=== PATIENT | female | born 1960 | race Caucasian/White ===

== ENCOUNTER 2017-02-25 13:15 | Emergency (ER) | payer BC ==
[~2017-02-25] VITALS: Ht 175.3 cm; Wt 90.7 kg
[2017-02-25 13:15] VITALS: BP 140/99
== END 2017-02-25 13:54 | disposition home or self-care (01) ==
LOC: ER 13:18
DX: G89.18 Other acute postprocedural pain (principal); F17.210 Nicotine dependence, cigarettes, uncomplicated; I10 Essential (primary) hypertension; F41.9 Anxiety disorder, unspecified; Z85.3 Personal history of malignant neoplasm of breast; Z90.12 Acquired absence of left breast and nipple
CPT/HCPCS: A4606; A6402; Z7502; Z7610

== ENCOUNTER 2018-04-07 19:32 | Inpatient (IN) | payer BC, MEDICAID ==
[~2018-04-07] VITALS: Ht 177.8 cm; Wt 89.4 kg
--- NOTE | 2018-04-07 19:32 | NUR ---
PT BB SELF C/C SHORTNESS OF BREATH W/COUGH X 1 WEEK. SPO2 86% ON RA. PLACED ON 5L 02 VIA N/C WITH SATURATION OF 95%. PT IS TACHYCARDIC AND HYPERTENSIVE. PT IS A/OX4 ABLE TO MAKE NEEDS KNOWN. WILL CONTINUE TO MONITOR FOR ANY CHANGES DURING THE SHIFT.
--- NOTE | 2018-04-07 19:38 | NUR ---
ER MD VERDE AT BEDSIDE FOR EVAL
--- NOTE | 2018-04-07 20:00 | NUR ---
EKG AT BEDSIDE
[2018-04-07] MEDS ORDERED: CEFTRIAXONE 1GM BAG (ER ONLY) 1 GM/50 ML PIGGYBACK IV ONE (21:00)
[2018-04-07] MEDS ORDERED: IV NS 0.9% 1,000 ML BAG IV ONE (21:00)
[2018-04-07] MEDS ORDERED: AZITHROMYCIN 500 MG in IV D5W 250 ML IV SCH (21:00)
--- NOTE | 2018-04-07 21:00 | NUR ---
CHEST XRAY AT BEDSIDE
[2018-04-07] MEDS ORDERED: CEFTRIAXONE 1 G VIAL ONE (21:05)
[2018-04-07] MEDS ORDERED: AZITHROMYCIN 500 MG VIAL ONE (21:05)
[2018-04-07 21:06] LABS: BASOPHILS # (AUTO) 0.1 /CMM (0.0-0.2); BASOPHILS % (AUTO) 1.3 % (0.0-2.0); EOSINOPHILS % (AUTO) 0.5 % (0.0-6.0); HEMATOCRIT 39 % (33-45); HEMOGLOBIN 12.8 g/dL (11.5-14.8); LYMPHOCYTES # (AUTO) 1.4 /CMM (0.8-4.8); LYMPHOCYTES % (AUTO) 14.2 % (20.0-44.0); MEAN CORPUSCULAR HGB CONC 33 g/dl (31.0-36.0); MEAN CORPUSCULAR VOLUME 81 fL (82-100); MONOCYTES # (AUTO) 0.4 /CMM (0.1-1.30); MONOCYTES % (AUTO) 4.4 % (2.0-12.0); NEUTROPHILS # (AUTO) 8.1 /CMM (1.8-8.9); NEUTROPHILS % (AUTO) 79.6 % (43.0-81.0); PLATELET COUNT (AUTO) 283 /CMM (150-450); RED BLOOD CELL COUNT(AUTO) 4.79 MIL/uL (4.0-5.2); WHITE BLOOD COUNT (AUTO) 10.1 K/uL (4.3-11.0)
[2018-04-07 21:21] LABS: INR 1.01 (0.85-1.15)
[2018-04-07 21:24] LABS: ALANINE AMINOTRANSFERASE 12 U/L (12-78); ALBUMIN 3.1 g/dL (3.4-5.0); ALKALINE PHOSPHATASE 122 U/L (46-116); ASPARTATE AMINOTRANSFERASE 80 U/L (15-37); BILIRUBIN,DIRECT 0.1 mg/dL (0.0-0.2); BILIRUBIN,TOTAL 0.5 mg/dL (0.2-1.0); CALCIUM, SERUM 9.9 mg/dL (8.5-10.1); CARBON DIOXIDE 27 mmol/L (21-32); CHLORIDE 96 mmol/L (98-107); CREATININE 0.9 mg/dL (0.6-1.3); GLUCOSE 114 mg/dL (74-106); POTASSIUM 4.1 mmol/L (3.5-5.1); SODIUM SERUM 131 mmol/L (136-145); TOTAL PROTEIN, SERUM 7.6 g/dL (6.4-8.2); UREA NITROGEN, BLOOD 14 mg/dL (7-18)
[2018-04-07 21:26] LABS: TROPONIN I < 0.017 ng/mL (0.00-0.056)
[2018-04-07] MEDS ORDERED: IOHEXOL-350 100 ML VIAL IV ONE (21:29)
[2018-04-07] MEDS ORDERED: ONDANSETRON HCL/PF 4 MG/2 ML VIAL IV ONE (21:30)
[2018-04-07] MEDS ORDERED: ALBUTEROL FS 2.5 MG/3 ML VIAL.NEB NEB ONE (21:30)
[2018-04-07] MEDS ORDERED: MORPHINE SULFATE INJ 2 MG/ML DISP.SYRIN IV ONE (21:30)
[2018-04-07] MEDS ORDERED: ONDANSETRON HCL/PF 4 MG/2 ML VIAL ONE (21:34)
[2018-04-07] MEDS ORDERED: MORPHINE SULFATE INJ 2 MG/ML DISP.SYRIN ONE (21:35)
[2018-04-07] MEDS ORDERED: ALBUTEROL FS 2.5 MG/3 ML VIAL.NEB ONE (21:35)
--- NOTE | 2018-04-07 21:40 | NUR ---
PT OFF TO CTA
--- NOTE | 2018-04-07 21:49 | NUR ---
ON PHONE WITH IVONE PENA
--- NOTE | 2018-04-07 21:50 | NUR ---
CALLED NURSING LOCOMOTIVE PIPE FITTER AND REQUESTED A TELE BED FOR THIS PT.
--- NOTE | 2018-04-07 22:23 | NUR ---
PT 02 SATURATION 99% AFTER BREATHING TX BY RT. PT STILL ON N/C 5L OF 02
[2018-04-07 22:37] LABS: APPEARANCE,URINE CLEAR (CLEAR); BILIRUBIN,URINE NEGATIVE (NEGATIVE); BLOOD, URINE TRACE Ery/uL (NEGATIVE); COLOR,URINE YELLOW (YELLOW); KETONES,URINE TRACE (NEGATIVE); LEUKOCYTE ESTERASE ,URINE NEGATIVE (NEGATIVE); NITRITE, URINE NEGATIVE (NEGATIVE); PROTEIN,URINE NEGATIVE (NEGATIVE); UGLUCOSE NEGATIVE (NEGATIVE); UROBILINOGEN,URINE 0.2 EU/dL (0.2)
--- NOTE | 2018-04-07 22:46 | NUR ---
ASSIGNED TO [facility]#: [id number], PT IS DIAGNOSED WITH ACUTE RESPIRATORY FAILURE, AND IVONE PENA IS THE ACCEPTING MD.
[2018-04-07 22:47] LABS: BACTERIA,URINE None seen /HPF (None Seen); RBC,URINE 0-2 /HPF (0-2); SQUAMOUS EPITHELIAL CELL,UR Few /HPF (None Seen); WBC,URINE 0-2 /HPF (0-3)
--- NOTE | 2018-04-07 22:55 | NUR ---
REPORT TO KAYLYNN
[2018-04-07] MEDS ORDERED: LEVO75TA7 PO (23:03)
--- NOTE | 2018-04-07 23:10 | NUR ---
TELE/RN NOTES RECEIVED PT. FROM ER VIA HAMZAH. PT. IS AWAKE, ALERT AND ORIENTED X3. BREATHING UNEVEN AND SLIGHTLY LABORED ON 5LPM O2 VIA SIMPLE FACE MASK. ORIENTED PT. TO ROOM. PLACED EXTERNAL GENERAL ACCOUNTING CLERK ON PT. CURRENT RHYTHM = SINUS TACHYCARDIA HR 116. PT. IS ANXIOUS. EDUCATED PT. ON DEEP BREATHING. PT. VERBALIZED UNDERSTANDING. PT. WITH LEFT AC 18 GAUGE IV SALINE LOCK PRESENT, PATENT AND INTACT. PT. WITH RIGHT FOREARM 18 GAUGE IV SALINE LOCK PRESENT, PATENT AND INTACT. PT. REFUSING BODY CHECK AT THIS TIME. NO COMPLAINTS OF PAIN NOTED AT THIS TIME. AWAITING ADMITTING ORDERS. BED LOCKED AND IN LOWEST POSITION, SIDE RAILS UP X2, BED ALARM ON, CALL LIGHT WITHIN REACH, WILL CONTINUE TO MONITOR.
--- NOTE | 2018-04-07 23:20 | NUR ---
RN NOTES: PT SATURATION DROPPING TO LOW 80'S, PT ON SIMPLE MASK 8L, RT CURRENTLY IN THE UNIT RECOMMENDS TO SWITCH TO NON REBREATHER MASK 15L, NOW SPO2 94% PT REMAINS TO BE ANXIOUS. SHIRA BRUCE FBI INVESTIGATOR PAGED AWAITING FOR CALL BACK
[2018-04-07 23:40] VITALS: BP 147/85
--- NOTE | 2018-04-07 23:50 | NUR ---
RN NOTES: PAGED EPIC SHIPPING PACKER
[2018-04-07 23:55] VITALS: BP 147/85
--- NOTE | 2018-04-07 23:55 | NUR ---
TELE/RN NOTES AWAITING RETURN CALL FROM [facility] CARPET SEWING MACHINE OPERATOR DR. PENA. [facility] PAGED TO NOTIFY THAT PT. WAS SHORT OF BREATH ON SIMPLE FACE MASK 10LPM, O2 SAT 89-90, PT. WAS THEN PLACED ON NON-REBREATHER. PT. O2 SAT 99% ON NON-REBREATHER, HOWEVER PT. REMAINS SHORT OF BREATH AND ANXIOUS. WILL CONTINUE TO AWAIT CALL FROM DR. PENA.
[2018-04-08] VITALS (30 sets, daily range): BP systolic 95–147; BP diastolic 57–103
--- NOTE | 2018-04-08 00:45 | NUR ---
TELE/RN NOTES NO RETURN CALL RECEIVED FROM DR. PENA. CALLED [facility] DATA PROCESSING EQUIPMENT REPAIRER AGAIN TO NOTIFY [facility] DATA PROCESSING EQUIPMENT REPAIRER DR. PENA PT. REMAINS SHORT OF BREATH AND VERY ANXIOUS, ATTEMPTED TO TITRATE PT. OFF OF NON-REBREATHER PT. DIDN'T TOLERATE AND BEGAN DE-SATTING. PT. REMAINS ON NON-REBREATHER O2 SAT 99%. PT. IS SINUS TACH HR [facility] DATA PROCESSING EQUIPMENT REPAIRER SERVICE STATED THEY WOULD PAGE DR. PENA AGAIN. AWAITING CALL BACK.
[2018-04-08] MEDS: ALPRAZOLAM 0.25 MG TABLET PO PRN ×2 (00:54→11:51)
[2018-04-08] MEDS ORDERED: ONDANSETRON HCL/PF 4 MG/2 ML VIAL IVP PRN (01:00)
[2018-04-08] MEDS ORDERED: ENOXAPARIN SODIUM 40 MG/0.4 ML DISP.SYRIN SQ SCH ×2 (01:00→21:00)
[2018-04-08] MEDS ORDERED: QUETIAPINE FUMARATE 100 MG TABLET PO SCH (01:00)
[2018-04-08] MEDS ORDERED: MORPHINE SULFATE INJ 2 MG/ML DISP.SYRIN IV PRN (01:00)
[2018-04-08] MEDS ORDERED: VERAPAMIL SR 120 MG TABLET.SA PO SCH (01:00)
[2018-04-08] MEDS: predniSONE 20 MG TABLET PO SCH ×2 (01:00→08:18)
[2018-04-08] MEDS: IV NS 0.9% 1,000 ML IV PRN ×2 (01:04→15:47)
[2018-04-08] MEDS: IPRATROPIUM NEB FS 0.5 MG/2.5 ML AMPUL.NEB NEB SCH ×7 (01:22→23:03)
[2018-04-08] MEDS: ALBUTEROL FS 2.5 MG/0.5 ML VIAL.NEB NEB SCH ×7 (01:22→23:03)
--- NOTE | 2018-04-08 01:35 | NUR ---
TELE/RN NOTES PT. NOTED TO BE PALE, RESTLESS AND MORE SHORT OF BREATH WHILE RECEIVING BREATHING TREATMENT O2 SAT 92% ON 8LPM SIMPLE FACE MASK. NO CALL BACK RECEIVED FROM SHIRA CABLE SWAGER DR. SILVA PAGED AGAIN, NO RESPONSE. RT ON THE UNIT RECOMMENDED STAT ABG AFTER ASSESSING PT. STAT ABG RESULTED AT PH 7.167, CO2 66.9, O2 96.4, HCO3 23.7, O2 SAT 94% ON 8LPM SIMPLE FACE MASK.
--- NOTE | 2018-04-08 02:15 | NUR ---
TELE/RN NOTES PT. WAS TRANSFERRED TO ICU ROOM 257 FOLLOWING ACLS PROTOCOL PT. NEEDS BIPAP. MD TECHNOLOGY LEAD ARRIVED TO ICU. REPORT AND PT. GIVEN TO MAGNETIC TAPE COMPOSER OPERATOR FOR CONTINUITY OF CARE.
[2018-04-08] MEDS ORDERED: BUMETANIDE INJ 0.25 MG/ML VIAL IV ONE (02:30)
--- NOTE | 2018-04-08 02:30 | NUR ---
mepilex used on bipap mask. no skin tear noted Addendum: 04/08/18 at 0527 by CAROLINE SANTIAGO RT Amended: Links added.
--- NOTE | 2018-04-08 02:30 | NUR ---
PT SHOWED SIGNS OF SEVERE RESP DISTRESS BUT IS STILL ABLE TO FOLLOW AND RESPOND TO COMMANDS. PT TACHYPNEIC, TACHYCARDIC, AND RESTLESS. INITIAL ABG TAKEN AT 3WEST AND CRITICAL RESULTS WERE READ. ANTONIA CHAIDEZ AND BRAZER REPAIR AND SALVAGEANTONIA WARREN AWARE OF ABG RESULTS. PT TRANSFERRED TO ICU AND PLACED ON BIPAP PER IVONE PENA REQ. ABG TO BE TAKEN IN 20 MIN PRIOR TO ABG, TO SEE FOR IMPROVEMENT OF BIPAP PER IVONE PENA. BIPAP PLUGGED INTO RED OUTLET, ALARMS ARE SET AND AUDIBLE. WILL CONTINUE TO MONITOR Addendum: 04/08/18 at 0332 by CAROLINE SANTIAGO RT Amended: Links added.
[2018-04-08 02:33] LABS: ABG BASE EXCESS -5.9 mmol/L; ABG OXYGEN SATURATION 94.7 % (92.0-98.5); ABG PCO2 66.9 mmHg (35.0-45.0); ABG PH 7.167 (7.350-7.450); ABG PO2 96.4 mmHg (75.0-100.0); AaDO2 184.8 mmHg; COHb 1.5 % (0.5-1.5); MetHb 0.8 % (0.0-1.5); O2Hb 92.5 % (94.0-97.0); SITE, ABG Right Radial; VENT MODE, BG Simple Mask
[2018-04-08] MEDS ORDERED: BUMETANIDE INJ 0.25 MG/ML VIAL ONE (02:39)
--- NOTE | 2018-04-08 02:50 | NUR ---
ABG TAKEN PRIOR TO PT ON BIPAP FOR 20 MINUTES, RESULTS SHOWED IMPROVEMENT. PELT DROPPER ED AWARE OF ABG RESULTS. PT IS NOW COMFORTABLE AND NO RESP DISTRESS NOTED. Addendum: 04/08/18 at 0342 by CAROLINE SANTIAGO RT Amended: Links added.
--- NOTE | 2018-04-08 02:53 | NUR ---
TELE/RN NOTES 0128 PT. NOTED TO BE PALE, RESTLESS, PT. MORE SHORT OF BREATH WHILE RECEIVING BREATHING TREATMENT O2 SAT 92% ON 8LPM SIMPLE FACE MASK. EPIC PAGED AGAIN, NO RESPONSE. RT ON THE UNIT RECOMMENDED STAT ABG AFTER ASSESSING PT. ABG RESULTED AT PH 7.167, CO2 66.9, O2 96.4, HCO3 23.7, O2 SAT 94% ON 8LPM SIMPLE FACE MASK. 0150 CALLED FOR RAPID RESPONSE. PT. IS SHORT OF BREATH AND BECOMING LETHARGIC. 0200 MALT LIQUORS SALES REPRESENTATIVE ENDED. 0215 PT. WAS TRANSFERRED TO ICU ROOM 257 FOLLOWING ACLS PROTOCOL PT. NEEDS BIPAP. MD POT HOLDER BINDER ARRIVED TO ICU. REPORT AND PT. GIVEN TO VENEER SORTER FOR CONTINUITY OF CARE. PEOPLE PRESENT DURING RAPID RESPONSE: KAYLYNN LEWIS (RN) CAROLINE SANTIAGO (RT) GLENN KEARNEY(RN LINUX SYSTEM ENGINEER) NICOLE RUIZ (RT) SHIVANI JAIME (RN) KELVIN SANTIAGO (RESISTANCE WELDER) KAMLESH RAVI (RN) YASMINE BLUNT (RN) HANNAH BRITT (RN) ED BEBE (RN)
[2018-04-08 02:59] LABS: ABG BASE EXCESS -3.3 mmol/L; ABG OXYGEN SATURATION 94.6 % (92.0-98.5); ABG PH 7.264 (7.350-7.450); ABG PO2 84.6 mmHg (75.0-100.0); AaDO2 137.4 mmHg; COHb 1.3 % (0.5-1.5); MetHb 0.7 % (0.0-1.5); O2Hb 92.7 % (94.0-97.0); SITE, ABG Right Radial; VENT MODE, BG Bipap 18/5 40% BR 16
--- NOTE | 2018-04-08 05:04 | NUR ---
EVAPORATOR OPERATOR PT WAS TRANSFERRED FROM [facility] FLOOR AT 0225 A.M. WITH DIAGNOSIS RESPIRATORY DISTRESS. HISTORY-LEFT BREAST CANCER & LEFT MASTECTOMY IN 2017. STAT CHEST CTA - NO PE, MTS TO LUNGS, LARGE BILATERAL PLEURAL FLUID ACCUMULATION. CXR- PULMONARY EDEMA. ON ADMISSION PT WAS AWAKE, ALERT, ORIENTED, BUT VERY ANXIOUS, TACHYPNEIC. SHE WAS DNR/DNI CODE. PT WAS PLACED ON BIPAP AND ABG WAS REPEATED IN 30 MIN. AFTER. PT ALSO WAS GIVEN BUMEX 2 MG IV. ABG WAS IMPROVED /SEE RESULTS/. NO SOB, PAIN OR ANY OTHER DISCOMFORT.VSS, AFEBRILE, SCOPE-SR. URINE OUTPUT IS LARGE. PT IS AWAKE, ALERT, ORIENTED, MOVES ALL EXTREMITIES, FOLLOWS COMMANDS, SPEECH IS CLEAR. SHE CHANGED HER CODE STATUS FROM DNR/DNI TO FULL CODE. WILL CONTINUE CLOSE MONITORING.
[2018-04-08] MEDS ORDERED: PIPERACILLIN /TAZOBACTAM 3.375 G in IV D5W 50 ML IV SCH (06:00)
[2018-04-08] MEDS ORDERED: DICYCLOMINE HCL 10 MG CAPSULE PO SCH (06:00)
[2018-04-08 06:57] LABS: BASOPHILS % (AUTO) 0.3 % (0.0-2.0); EOSINOPHILS % (AUTO) 0.3 % (0.0-6.0); HEMATOCRIT 37 % (33-45); HEMOGLOBIN 12.1 g/dL (11.5-14.8); LYMPHOCYTES # (AUTO) 0.6 /CMM (0.8-4.8); LYMPHOCYTES % (AUTO) 7.2 % (20.0-44.0); MEAN CORPUSCULAR HGB CONC 33 g/dl (31.0-36.0); MEAN CORPUSCULAR VOLUME 84 fL (82-100); MONOCYTES # (AUTO) 0.2 /CMM (0.1-1.30); MONOCYTES % (AUTO) 2.7 % (2.0-12.0); NEUTROPHILS # (AUTO) 7.8 /CMM (1.8-8.9); NEUTROPHILS % (AUTO) 89.5 % (43.0-81.0); PLATELET COUNT (AUTO) 215 /CMM (150-450); RDW COEFFICIENT OF VARIATION 15.3 (11.5-15.0); RED BLOOD CELL COUNT(AUTO) 4.39 MIL/uL (4.0-5.2); WHITE BLOOD COUNT (AUTO) 8.8 K/uL (4.3-11.0)
[2018-04-08 07:10] LABS: TROPONIN I 0.021 ng/mL (0.00-0.056)
[2018-04-08 07:22] LABS: THYROID STIMULATING HORMONE 1.738 uIU/mL (0.358-3.74)
[2018-04-08 07:24] LABS: ALBUMIN 2.8 g/dL (3.4-5.0); BILIRUBIN,TOTAL 0.3 mg/dL (0.2-1.0); CALCIUM, SERUM 8.6 mg/dL (8.5-10.1); CREATININE 0.8 mg/dL (0.6-1.3); MAGNESIUM 1.4 mg/dL (1.8-2.4); PHOSPHORUS 3.8 mg/dL (2.5-4.9); POTASSIUM 3.6 mmol/L (3.5-5.1)
[2018-04-08 07:28] LABS: GAMMA GLUTAMYL TRANSFERASE 464 U/L (5-85)
--- NOTE | 2018-04-08 07:40 | NUR ---
ICU/RN PT IS ON BI-PAP.FIO2-40%.PT IS AWAKE,ALERT.V/S STABLE AFEBRILE,NO PAIN REPORTED AT THIS TIME.PERIFERAL IV INFUSING ORDERED.PT USE BEDPAN.URINATE WITH CLEAR YELLOW URINE.REPOSITION FOR COMFORT.LABS REVIEW . NOTIFIED.NEW ORDERS RECEIVED.CONTINUE MONITORING.
--- NOTE | 2018-04-08 07:53 | NUR ---
PATIENT WAS TAKEN OFF BIPAP AND PLACED ON 5L N/C. SHORTLY AFTER PATIENT BECAME ANXIOUS AND SOB NOTED. PATIENT PLACED BACK ON BIPAP. RN AT BEDSIDE.
--- NOTE | 2018-04-08 08:10 | NUR ---
ICU/RN PT IS OFF BI-PAP AND PLACED TO N/C 5L.UNABLE TO TOLERATE.HAS SOB ,SAT O2 DECREASED TO 85%,HR INCREASED TO 122 BPM.VERY ANXIOUS.PLACED BACK TO BIPAP. NOTIFIED.MG-1.4.WILL REPLACED. ORDERED.
[2018-04-08] MEDS: LEVOTHYROXINE SODIUM 75 MCG TABLET PO SCH (08:18)
[2018-04-08] MEDS ORDERED: PANTOPRAZOLE 40 MG VIAL IV SCH (09:00)
[2018-04-08] MEDS: ENOXAPARIN SODIUM 40 MG/0.4 ML DISP.SYRIN SQ SCH (09:18)
[2018-04-08] MEDS: Magnesium 1GM/D5W 100ML PREMIX 100 ML IV SCH ×3 (09:18→11:20)
[2018-04-08 10:58] LABS: ABG BASE EXCESS 0.3 mmol/L; ABG OXYGEN SATURATION 94.1 % (92.0-98.5); ABG PH 7.376 (7.350-7.450); ABG PO2 76.4 mmHg (75.0-100.0); AaDO2 157.1 mmHg; COHb 0.3 % (0.5-1.5); MetHb 0.6 % (0.0-1.5); O2Hb 93.3 % (94.0-97.0); SITE, ABG Right Radial; VENT MODE, BG BIPAP 15/5
--- NOTE | 2018-04-08 11:19 | NUR ---
ICU/RN ABG DONE . NOTIFIED. Addendum: 04/08/18 at 1120 by MACO BARFIELD RN FIO2 INCREASED TO 50%
--- NOTE | 2018-04-08 11:58 | NUR ---
ICU/RN PT WAS OFF BI-PAP FOR 5 MIN .UNABLE TO TOLERATE.AGITATED,SOB.XANAX 2 TAB PO GIVEN ORDERED.
[2018-04-08] MEDS: ZOSYN IVPB 3.375 G in IV D5W 50ml IV SCH ×2 (14:04→18:00)
--- NOTE | 2018-04-08 19:20 | NUR ---
PT RCVD ON BIPAP 18/, RATE 16, 50%. PT TOLERATING BIPAP SETTINGS. PT IS ALERT AND NO RESPIRATORY DISTRESS NOTED. BIPAP PLUGGED INTO RED OUTLET. ALARMS ARE SET AND AUDIBLE. AMBU BAG AT BEDSIDE. BREATHING TX GIVEN PER MD'S ORDERED. NO ADVERSE REACTION NOTED. WILL CONTINUE TO MONITOR .
--- NOTE | 2018-04-08 19:37 | NUR ---
INSULATION BOARD COATER OPERATOR. RECEIVED THE PT REST ON THE BED, AWAKE, ALERT, FOLLOW COMMANDS. BIPAP ON. WOOD CARVING MACHINE OPERATOR SHOWING NSR, BIPAP SETTINGS 18/5,RATE 16,FIO2 50%. SAT 98%. IV LT AC 18G. HOB ELEVATED, WILL CONTINUE TO MONITOR VITALS.
[2018-04-09] VITALS (31 sets, daily range): BP systolic 88–151; BP diastolic 59–103
[2018-04-09] MEDS: ZOSYN IVPB 3.375 G in IV D5W 50ml IV SCH ×4 (00:20→18:28)
[2018-04-09] MEDS: ALPRAZOLAM 0.25 MG TABLET PO PRN ×3 (00:54→17:13)
[2018-04-09] MEDS: IPRATROPIUM NEB FS 0.5 MG/2.5 ML AMPUL.NEB NEB SCH ×6 (02:59→23:20)
[2018-04-09] MEDS: ALBUTEROL FS 2.5 MG/0.5 ML VIAL.NEB NEB SCH ×6 (02:59→23:20)
[2018-04-09] MEDS: ACETAMINOPHEN 325 MG TABLET PO PRN ×2 (03:08→09:25)
--- NOTE | 2018-04-09 03:15 | NUR ---
FISH HATCHERY INSPECTOR. AM CARE, ORAL CARE, BED BATH GIVEN. LINEN CHANGED, REMAINING SAME BIPAP SETTING TOLERATED WELL. SAT 99%, NO ACUTE DISTRESS NOTED. RESEARCH WORKER ENCYCLOPEDIA SHOWING NSR. IV RT AC 20G, IVF NS 80ML/H. HOB ELEVATED, TURN AND REPOSITION Q2H, WILL CONTINUE TO MONITOR VITALS
[2018-04-09] MEDS ORDERED: MORPHINE SULFATE INJ 2 MG/ML DISP.SYRIN ONE (04:24)
[2018-04-09 04:44] LABS: BASOPHILS % (AUTO) 0.2 % (0.0-2.0); EOSINOPHILS % (AUTO) 0.1 % (0.0-6.0); HEMATOCRIT 35 % (33-45); HEMOGLOBIN 11.6 g/dL (11.5-14.8); LYMPHOCYTES # (AUTO) 1.2 /CMM (0.8-4.8); LYMPHOCYTES % (AUTO) 15.3 % (20.0-44.0); MEAN CORPUSCULAR HGB CONC 33 g/dl (31.0-36.0); MEAN CORPUSCULAR VOLUME 84 fL (82-100); MONOCYTES # (AUTO) 0.5 /CMM (0.1-1.30); MONOCYTES % (AUTO) 6.7 % (2.0-12.0); NEUTROPHILS # (AUTO) 6.2 /CMM (1.8-8.9); NEUTROPHILS % (AUTO) 77.7 % (43.0-81.0); PLATELET COUNT (AUTO) 219 /CMM (150-450); RDW COEFFICIENT OF VARIATION 15.2 (11.5-15.0); RED BLOOD CELL COUNT(AUTO) 4.16 MIL/uL (4.0-5.2)
[2018-04-09] MEDS: MORPHINE SULFATE INJ 4 MG/ML DISP.SYRIN IV PRN ×3 (04:45→19:05)
[2018-04-09] MEDS: IV NS 0.9% 1,000 ML IV PRN (04:52)
[2018-04-09 05:08] LABS: ALBUMIN 2.5 g/dL (3.4-5.0); BILIRUBIN,TOTAL 0.4 mg/dL (0.2-1.0); CALCIUM, SERUM 8.6 mg/dL (8.5-10.1); CREATININE 0.8 mg/dL (0.6-1.3); MAGNESIUM 2.1 mg/dL (1.8-2.4); PHOSPHORUS 3.5 mg/dL (2.5-4.9); POTASSIUM 3.8 mmol/L (3.5-5.1); TOTAL PROTEIN, SERUM 6.5 g/dL (6.4-8.2)
--- NOTE | 2018-04-09 07:30 | NUR ---
LAND DEVELOPER RECEIVED PATIENT AWAKE, VERY CALM AND FRIENDLY ON BIPAP AT 40% FI02 ALERT ORIENTED X 4 WITH DYSPNEIC EPISODE ABLE TO CONSUME HER SHARE OF MEAL WITH GOOD APPETITE COMPLAINTS OF SOB AT TIMES MONITORED CLOSELY
[2018-04-09] MEDS: LEVOTHYROXINE SODIUM 75 MCG TABLET PO SCH (07:52)
[2018-04-09] MEDS: predniSONE 20 MG TABLET PO SCH (08:52)
[2018-04-09] MEDS: ENOXAPARIN SODIUM 40 MG/0.4 ML DISP.SYRIN SQ SCH (08:53)
[2018-04-09 11:10] LABS: ABG BASE EXCESS 2.9 mmol/L; ABG PCO2 48.1 mmHg (35.0-45.0); ABG PH 7.393 (7.350-7.450); ABG PO2 75.1 mmHg (75.0-100.0); AaDO2 154.8 mmHg; SITE, ABG Right Radial; VENT MODE, BG BIPAP 18/5 40%
--- NOTE | 2018-04-09 20:05 | NUR ---
RECEIVED PT ON BIPAP 17/03, 16, 40%. PT IS AWAKE ALERT AND TOLERATING SETTINGS. NO RESP DISTRESS. MEPILEX IN PLACE. ALARMS SET AND AUDIBLE. WILL CONTINUE TO MONITOR. Addendum: 04/09/18 at 2007 by BHAVYA MAYNARD RT Amended: Links added.
[2018-04-09] MEDS: ZOLPIDEM TARTRATE 5 MG TABLET PO PRN (20:56)
--- NOTE | 2018-04-09 21:00 | NUR ---
LEAD MANUFACTURING ENGINEERING TECH - REC'D PT. W/BIPAP ON-SETTINGS AT I:E=18/5, RATE OF 16 & 40%. O2 SATS ARE >96%. LUNG CHRISTENSEN AUSC HAVE DIM/RHONCHI/CRACKLES AUSC. PT. IS VERY ANXIOUS & EMOTIONAL. PT.IS CRYING RE: HER SITUATION. PT.IS HAVING RT. EYE DISTORTION ISSUES. SHE STATED THAT "SOMETIMES SIGHT IS BLURRY & THEN WILL TURN BLACK & THEN BLURRY AGAIN". HEART MONITOR SHOWS SBP'S ARE LABILE & HR/SR/PVC'S. PT.IS ON A REG.DIET. PT.IS USING BEDPAN & BSC. ALL PULSES PALPABLE X 4 EXT. PT.IS AMBULATORY, BUT SHAKY WHEN TRYING TO STAND UP. AFEBRILE. PT. HAS NO LEFT BREAST (MASTECTOMY 02/14). SKIN INTACT. RUE MIDLINE HAS 0.9%NS INFUSING AT 80 CC/HR. PT. ASKED FOR AMBIEN AT PRESENT & STATED THAT SHE IS IN CONSTANT PAIN & THAT SHE HASN'T SLEPT FOR DAYS. PT. ALSO STATED THAT MSO4 AND XANAX DOESN'T WORK FOR HER. I OFFERED TO CALL & CHANGE MEDS, BUT PT. SAID "DON'T BOTHER". WILL F/U. CONT. POC.
[2018-04-09] MEDS ORDERED: OLANZAPINE 10 MG VIAL IM ONE ×2 (22:51→23:00)
[2018-04-10] VITALS (36 sets, daily range): BP systolic 100–178; BP diastolic 30–115
--- NOTE | 2018-04-10 | NUR ---
CASH APPLICATION CLERK- PT.HAD A COMP.BEDBATH AT 23:00 DUE TO URINE/FECAL INCONTINENCE. PT. IS ON THE BSC & JUST HAD A BM. ROSIE DID NOT WORK FOR PT. SHE IS STILL WIDE AWAKE. IVONE PENA DNP WAS PHONED AT 23:00 FOR ANOTHER MED TO HELP PT. SLEEP. ORDERS REC'D. PT. WAS ADM. ZYPREXA 5MG/IM TO LEFT HIP/BUTTOCKS. CONT. POC.
[2018-04-10] MEDS: GUAIFENESIN/D-METHORPHAN HB 5 ML UDC PO PRN (01:47)
[2018-04-10] MEDS: MORPHINE SULFATE INJ 4 MG/ML DISP.SYRIN IV PRN (01:48)
[2018-04-10] MEDS: ALPRAZOLAM 0.25 MG TABLET PO PRN ×2 (01:49→11:25)
[2018-04-10] MEDS: ZOSYN IVPB 3.375 G in IV D5W 50ml IV SCH ×4 (01:49→18:00)
[2018-04-10] MEDS: IV NS 0.9% 1,000 ML IV PRN ×2 (01:54→14:53)
--- NOTE | 2018-04-10 03:00 | NUR ---
PARTS CONTROL CLERK - PT. IS FINALLY RESTING W/EYES CLOSED. AT 01:45, PT. WAS ADM. MORPHINE SULF. 2MG/IVP & XANAX 0.5MG/PO. PT. WAS ALSO ADM. ROBITUSSIN COUGH SYRUP DUE TO COUGHING JAGS. A SMALLER BIPAP MASK WAS PLACED ON PT'S FACE BY HAYES. CONT.POC.
[2018-04-10] MEDS: IPRATROPIUM NEB FS 0.5 MG/2.5 ML AMPUL.NEB NEB SCH ×5 (03:23→20:18)
[2018-04-10] MEDS: ALBUTEROL FS 2.5 MG/0.5 ML VIAL.NEB NEB SCH ×5 (03:23→20:18)
[2018-04-10 04:24] LABS: BASOPHILS % (AUTO) 0.4 % (0.0-2.0); EOSINOPHILS % (AUTO) 0.3 % (0.0-6.0); HEMATOCRIT 36 % (33-45); HEMOGLOBIN 11.6 g/dL (11.5-14.8); LYMPHOCYTES # (AUTO) 1.6 /CMM (0.8-4.8); LYMPHOCYTES % (AUTO) 15.7 % (20.0-44.0); MEAN CORPUSCULAR HGB CONC 33 g/dl (31.0-36.0); MEAN CORPUSCULAR VOLUME 84 fL (82-100); MONOCYTES # (AUTO) 0.6 /CMM (0.1-1.30); MONOCYTES % (AUTO) 6.2 % (2.0-12.0); NEUTROPHILS # (AUTO) 7.8 /CMM (1.8-8.9); NEUTROPHILS % (AUTO) 77.4 % (43.0-81.0); PLATELET COUNT (AUTO) 233 /CMM (150-450); RDW COEFFICIENT OF VARIATION 15.1 (11.5-15.0); RED BLOOD CELL COUNT(AUTO) 4.21 MIL/uL (4.0-5.2)
[2018-04-10 04:36] LABS: CALCIUM, SERUM 8.6 mg/dL (8.5-10.1); CREATININE 0.7 mg/dL (0.6-1.3); POTASSIUM 3.5 mmol/L (3.5-5.1)
[2018-04-10] MEDS: MORPHINE SULFATE INJ 2 MG/ML DISP.SYRIN IV PRN ×4 (05:24→20:35)
--- NOTE | 2018-04-10 06:45 | NUR ---
ROPING MACHINE TENDER - IVONE PENA DNP WAS PHONED AGAIN RE: PT'S PAIN MANAGEMENT. ORDERS REC'D. MSO4-2MG WAS ADM. & IS NOW Q 2-NOT Q 4HR. GOOD UOP VIA BSC & BEDPAN. PT. HAD ONE EPISODE OF FECAL & ONE EPISODE OF URINE INCON - TINENCE. ATTEMPTS TO COMFORT & SUPPORT MEASURES WERE GIVEN. REPORT WILL BE ENDORSED TO KESHA RN.
--- NOTE | 2018-04-10 07:10 | NUR ---
RN INITIAL NOTES RECEIVED PT AWAKE, A/OX4. A LITTLE ANXIOUS/AGITATED. ON BIPAP. HOB ELEVATED. NO RESPIRATORY DISTRESS NOTED. NO SOB NOTED. DENIES ANY PAIN. MIDLINE IN PLACE. IVF INFUSING. SKIN INTACT. PT CONTINENT, USES BEDPAN OR BEDSIDE COMMODE. BLE ELEVATED. FOR POSSIBLE BILATERAL THORACENTESIS TODAY. WILL MONITOR.
[2018-04-10] MEDS: predniSONE 20 MG TABLET PO SCH (08:33)
[2018-04-10] MEDS: LEVOTHYROXINE SODIUM 75 MCG TABLET PO SCH (08:33)
[2018-04-10] MEDS: ENOXAPARIN SODIUM 40 MG/0.4 ML DISP.SYRIN SQ SCH (08:52)
--- NOTE | 2018-04-10 09:25 | NUR ---
RT PATIENT REMAINS ON BIPAP WITH SAME SETTINGS. PATIENT REMOVED FROM BIPAP FOR NASAL AND SKIN CARE. PATIENT UNABLE TO TOLERATE BEING OFF BIPAP VERY LONG AND BECAME ANXIOUS AND SOB. PLACED BACK ON BIPAP AT THIS TIME.
--- NOTE | 2018-04-10 09:52 | NUR ---
JALEN was informed by ICU CRGopal Townsend that pt. wants to apply for insurance since her insurance lapsed and she has no coverage. JALEN called Maria, insurance liaison x [phone] and informed her that pt. would like to apply for insurance. Maria informed SW she will go see the pt. today. JALEN contacted DIRECTOR BROADCAST Naomy and requested her to inform the pt. that Maria will be coming by to see her to assist with insurance.
--- NOTE | 2018-04-10 10:00 | NUR ---
RN NOTES SEEN AND EXAMINED BY DR. ENAMORADO. AWARE OF CURRENT LAB VALUES AND CXR RESULT. PT FOR BILATERAL THORACENTESIS TODAY. VS STABLE. PAIN WELL MANAGED. WILL CONTINUE TO MONITOR.
--- NOTE | 2018-04-10 13:21 | NUR ---
POST THORACENTESIS PATIENT REMOVED FROM BIPAP AND PLACED ON 5L N/C IONA WELL AT THIS TIME.
--- NOTE | 2018-04-10 13:30 | NUR ---
RN NOTES PT SP RIGHT THORACENTESIS. REMOVED 1600ML. TOLERATED PROCEDURE WELL. CXR DONE. NO PNEUMOTHORAX NOTED. WILL CONTINUE TO MONITOR.
--- NOTE | 2018-04-10 19:00 | NUR ---
RN INITIAL NOTES RECEIVED THE PATIENT AWAKE ON BED, A/O X4. ON BIPAP WITH SETTINGS 18/5, RATE 16, FIO2 40%, SATURATING WELL, NO S/S OF RESP DISTRESS. PT IS ST ON THE MONITOR, HR 100'S. PT IS CONTINENT, ABLE TO USE BEDPAN WITH ASSIST. RIGHT UPPER ARM MIDLINE WITH NS @ 80MLS/HR, FLUSHED AND PATENT, NO S/S OF INFILTRATION/INFECTION, DRESSING CDI. BED LOW AND LOCKED, SIDERAILS UP, CALL LIGHT WITHIN REACH. WILL MONITOR
[2018-04-10] MEDS: ZOLPIDEM TARTRATE 5 MG TABLET PO PRN (22:27)
[2018-04-11] VITALS (32 sets, daily range): BP systolic 107–167; BP diastolic 64–104
[2018-04-11] MEDS: ALBUTEROL FS 2.5 MG/0.5 ML VIAL.NEB NEB SCH ×7 (00:23→23:18)
[2018-04-11] MEDS: IPRATROPIUM NEB FS 0.5 MG/2.5 ML AMPUL.NEB NEB SCH ×7 (00:23→23:18)
[2018-04-11] MEDS: IV NS 0.9% 1,000 ML IV PRN ×3 (00:24→21:35)
[2018-04-11] MEDS: ZOSYN IVPB 3.375 G in IV D5W 50ml IV SCH ×4 (00:24→18:32)
[2018-04-11] MEDS: ALPRAZOLAM 0.25 MG TABLET PO PRN ×3 (00:36→20:45)
[2018-04-11] MEDS: MORPHINE SULFATE INJ 2 MG/ML DISP.SYRIN IV PRN ×3 (02:21→21:35)
[2018-04-11] MEDS: GUAIFENESIN/D-METHORPHAN HB 5 ML UDC PO PRN ×2 (02:21→18:35)
[2018-04-11 04:17] LABS: BASOPHILS % (AUTO) 0.4 % (0.0-2.0); EOSINOPHILS % (AUTO) 0.4 % (0.0-6.0); HEMATOCRIT 34 % (33-45); HEMOGLOBIN 11.1 g/dL (11.5-14.8); LYMPHOCYTES # (AUTO) 1.3 /CMM (0.8-4.8); LYMPHOCYTES % (AUTO) 15.1 % (20.0-44.0); MEAN CORPUSCULAR HGB CONC 33 g/dl (31.0-36.0); MEAN CORPUSCULAR VOLUME 84 fL (82-100); MONOCYTES # (AUTO) 0.6 /CMM (0.1-1.30); NEUTROPHILS # (AUTO) 6.7 /CMM (1.8-8.9); NEUTROPHILS % (AUTO) 77.1 % (43.0-81.0); PLATELET COUNT (AUTO) 245 /CMM (150-450); RDW COEFFICIENT OF VARIATION 15.3 (11.5-15.0); RED BLOOD CELL COUNT(AUTO) 4.03 MIL/uL (4.0-5.2); WHITE BLOOD COUNT (AUTO) 8.6 K/uL (4.3-11.0)
[2018-04-11 04:26] LABS: CALCIUM, SERUM 8.7 mg/dL (8.5-10.1); CREATININE 0.6 mg/dL (0.6-1.3); POTASSIUM 3.5 mmol/L (3.5-5.1)
--- NOTE | 2018-04-11 06:00 | NUR ---
RN CLOSING NOTES PT REMAINS STABLE OF THE MOMENT. ALL DUE MEDS GIVEN, AM CARE PROVIDED. WILL ENDORSE RENU TO AM RN
--- NOTE | 2018-04-11 07:10 | NUR ---
RN INITIAL NOTES RECEIVED PT AWAKE, A/OX4. ON BIPAP. HOB ELEVATED. NO RESPIRATORY DISTRESS NOTED. NO SOB NOTED. DENIES ANY PAIN. MIDLINE IN PLACE. IVF INFUSING. SKIN INTACT. PT CONTINENT, USES BEDPAN OR BEDSIDE COMMODE. BLE ELEVATED. CALL LIGHT WITHIN REACH. WILL MONITOR.
--- NOTE | 2018-04-11 07:51 | NUR ---
RT PT FOUND ON UNDER NOSE CUSHION MASK, SOME REDNESS SEEN ON BRIDGE OF NOSE BUT NO APPARENT SKIN BREAKDOWN. PT IS AWAKE AND ALERT. BIPAP IS PLUGGED INTO RED OUTLET AND ALARMS SET/FUNCTIONAL. PT APPEARS TO BE COMFORTABLE ON BIPAP, WILL CONTINUE TO MONITOR. Addendum: 04/11/18 at 0755 by CM FLORES RT Amended: Links added.
[2018-04-11] MEDS: predniSONE 20 MG TABLET PO SCH (08:59)
[2018-04-11] MEDS: LEVOTHYROXINE SODIUM 75 MCG TABLET PO SCH (08:59)
[2018-04-11] MEDS: ENOXAPARIN SODIUM 40 MG/0.4 ML DISP.SYRIN SQ SCH (09:00)
--- NOTE | 2018-04-11 09:20 | NUR ---
RN NOTES SEEN AND EXAMINED BY DR. PARDO. PT ON BIPAP. PT AWAKE, A/OX4. AGITATED. MD AWARE OF CURRENT LAB VALUES. PT FOR POSSIBLE LEFT THORACENTESIS TODAY, WILL SEND SPECIMEN FOR CYTOLOGY. WILL PLACE PT ON 02 AT 6LPM VIA NC. WILL DO ABG POST 1HR. WILL CLOSELY MONITOR.
[2018-04-11 10:11] LABS: ABG BASE EXCESS 4.5 mmol/L; ABG OXYGEN SATURATION 91.9 % (92.0-98.5); ABG PCO2 45.6 mmHg (35.0-45.0); ABG PH 7.429 (7.350-7.450); ABG PO2 63.1 mmHg (75.0-100.0); AaDO2 205.9 mmHg; MetHb 0.6 % (0.0-1.5); O2Hb 91.3 % (94.0-97.0); SITE, ABG Right Radial
--- NOTE | 2018-04-11 10:20 | NUR ---
RN NOTES DR. PARDO IN THE UNIT. AWARE OF ABG RESULT. PT ON 02 AT 6LPM VIA NC. HOB ELEVATED. PT ANXIOUS, REASSURANCE DONE. WILL CONTINUE TO MONITOR.
--- NOTE | 2018-04-11 12:00 | NUR ---
RN NOTES SEEN AND EXAMINED BY FLETCHER CHAIDEZ. PT A/OX4. ON 02 AT 6LPM VIA NC. PT ANXIOUS. HOB ELEVATED. AWARE OF CURRENT LAB VALUES. PT FOR POSSIBLE LEFT THORACENTESIS TODAY. AWAITING FOR ULTRASOUND. GERIATRIC NURSE ASSISTANT ORDERED CT HEAD AND NECK WO CONTRAST. WILL MONITOR.
--- NOTE | 2018-04-11 14:00 | NUR ---
RN NOTES FF UP CALL DONE FOR US GUIDED THORACENTESIS. SPOKE WITH ANNMARIE. PER ANNMARIE, HE WILL FF UP WITH THE MD. PT AWARE
--- NOTE | 2018-04-11 14:55 | NUR ---
RN NOTES 1415 PT LEFT VIA BED FOR CT HEAD AND NECK WO CONTRAST. PT A/OX4. ON 02 VIA FACIAL MASK AT 8LPM. HOB ELEVATED. 1445 PT BACK FROM PROCEDURE. PLACED COMFORTABLE BACK TO BED. CALL LIGHT WITHIN REACH. NOTED SBP>106S, DBP>100. FLETCHER CHAIDEZ AWARE WITH ORDER NOTED AND CARRIED OUT. WILL MONITOR.
[2018-04-11] MEDS ORDERED: hydrALAZINE HCL IV 20 MG VIAL IV PRN (15:00)
--- NOTE | 2018-04-11 16:40 | NUR ---
RN NOTES US GUIDED THORACENTESIS (LEFT) DONE. REMOVED 1500ML. TOLERATED PROCEDURE WELL. VS STABLE. FOR CXR. WILL CONTINUE TO MONITOR.
--- NOTE | 2018-04-11 19:00 | NUR ---
RN CLOSING NOTES PT REMAINS STABLE. NO SIGNIFICANT CHANGE NOTED. ON 02 AT 6LPM VIA NC. KEPT HOB ELEVATED. KEPT COMFORTABLE. ALL NEEDS ANTICIPATED AND MET. CALL LIGHT WITHIN REACH
--- NOTE | 2018-04-11 19:30 | NUR ---
RN INITIAL NOTES RECEIVED PT AWAKE, SITTING ON BED, PT IS A/O X4, APPEARS SEVERELY ANXIOUS. PT IS ON 6L NASAL CANNULA, SATURATING WELL, BUT WITH SEVERE COUGH. PT IS COMPLAINING OF MUSCLE PAIN, SHE REFUSES PAIN MEDICATION OF NOW BUT REQUESTS FOR SOME MUSCLE RELAXANTS, WILL OBTAIN ORDERS FROM ON-CALL MD. SHE IS SINUS TACH ON THE MONITOR, HR 110'S. PT IS CONTINENT, ABLE TO USE THE BEDPAN AND COMMODE WITH SOME ASSISTANCE. RIGHT UPPER ARM MIDLINE WITH NS @ 80MLS/HR, FLUSHED AND PATENT, NO S/S OF INFILTRATION/INFECTION, DRESSING CDI. BED LOW AND LOCKED, SIDERAILS UP, CALL LIGHT WITHIN REACH. WILL MONITOR
[2018-04-11] MEDS: CYCLOBENZAPRINE 10 MG TABLET PO PRN (19:35)
--- NOTE | 2018-04-11 20:50 | NUR ---
RN NOTES NOTIFIED ON-CALL RAO MATHIS SPECIAL EDUCATION ASSISTANT OF THE PATIENT'S SEVERE COUGHS EVEN S/P ROBITUSSIN 2HRS AGO. ALSO NOTIFIED HIM THAT PATIENT IS SEVERELY ANXIOUS AND NEXT XANAX DOSE IS AVAILABLE 2 HRS FROM NOW. PER RAO BYNUM, GIVE PRN XANAX NOW.
--- NOTE | 2018-04-11 20:51 | NUR ---
RECEIVED PT ON 6L NC. PT IS AWAKE ALERT. BIPAP S/B. PT RECEIVING Q4 BREATHING TX. WILL CONTINUE TO MONITOR.
[2018-04-11] MEDS: ZOLPIDEM TARTRATE 5 MG TABLET PO PRN (21:35)
--- NOTE | 2018-04-11 22:25 | NUR ---
PT REQUESTED TO BE ON BIPAP SO SHE CAN SLEEP. RN NOTIFIED WILL CONTINUE TO MONITOR. Addendum: 04/11/18 at 2227 by BHAVYA MAYNARD RT Amended: Links added.
[2018-04-12] VITALS (27 sets, daily range): BP systolic 110–176; BP diastolic 55–101
[2018-04-12] MEDS: ZOSYN IVPB 3.375 G in IV D5W 50ml IV SCH ×4 (00:59→18:50)
[2018-04-12] MEDS: IPRATROPIUM NEB FS 0.5 MG/2.5 ML AMPUL.NEB NEB SCH ×6 (03:08→23:06)
[2018-04-12] MEDS: ALBUTEROL FS 2.5 MG/0.5 ML VIAL.NEB NEB SCH ×6 (03:08→23:06)
[2018-04-12 04:45] LABS: BASOPHILS % (AUTO) 0.2 % (0.0-2.0); EOSINOPHILS % (AUTO) 0.5 % (0.0-6.0); HEMATOCRIT 34 % (33-45); HEMOGLOBIN 11.1 g/dL (11.5-14.8); LYMPHOCYTES # (AUTO) 1.4 /CMM (0.8-4.8); LYMPHOCYTES % (AUTO) 16.2 % (20.0-44.0); MEAN CORPUSCULAR HGB CONC 33 g/dl (31.0-36.0); MEAN CORPUSCULAR VOLUME 84 fL (82-100); MONOCYTES # (AUTO) 0.6 /CMM (0.1-1.30); MONOCYTES % (AUTO) 7.1 % (2.0-12.0); NEUTROPHILS # (AUTO) 6.5 /CMM (1.8-8.9); PLATELET COUNT (AUTO) 222 /CMM (150-450); RDW COEFFICIENT OF VARIATION 15.6 (11.5-15.0); RED BLOOD CELL COUNT(AUTO) 4.06 MIL/uL (4.0-5.2); WHITE BLOOD COUNT (AUTO) 8.5 K/uL (4.3-11.0)
[2018-04-12 04:59] LABS: INR 1.01 (0.87-1.13)
[2018-04-12 05:04] LABS: CALCIUM, SERUM 8.8 mg/dL (8.5-10.1); CREATININE 0.7 mg/dL (0.6-1.3); MAGNESIUM 1.7 mg/dL (1.8-2.4); PHOSPHORUS 3.6 mg/dL (2.5-4.9); POTASSIUM 3.7 mmol/L (3.5-5.1)
[2018-04-12] MEDS: CYCLOBENZAPRINE 10 MG TABLET PO PRN (05:10)
[2018-04-12] MEDS: MORPHINE SULFATE INJ 2 MG/ML DISP.SYRIN IV PRN ×3 (05:10→21:48)
[2018-04-12] MEDS: GUAIFENESIN/D-METHORPHAN HB 5 ML UDC PO PRN ×2 (05:10→19:38)
--- NOTE | 2018-04-12 06:20 | NUR ---
RN CLOSING NOTES PT REMAINS STABLE OF THE MOMENT. ALL DUE MEDS GIVEN, AM CARE PROVIDED. WILL ENDORSE RENU TO AM RN
--- NOTE | 2018-04-12 08:04 | NUR ---
RT PATIENT REMOVED FROM BIPAP AND PLACED ON 5L N/C IONA WELL AT THIS TIME. WILL CONT TO MONITOR CLOSELY.
[2018-04-12] MEDS: LEVOTHYROXINE SODIUM 75 MCG TABLET PO SCH (08:11)
[2018-04-12] MEDS: ENOXAPARIN SODIUM 40 MG/0.4 ML DISP.SYRIN SQ SCH (08:11)
[2018-04-12] MEDS: predniSONE 20 MG TABLET PO SCH (08:11)
--- NOTE | 2018-04-12 09:12 | NUR ---
STOCKROOM SELECTOR NOTE 0720: Received patient awake, A/Ox4. On Bipap, no distress noted at this time. Placed by RT on 4LPM of O2 via N, sat >93%. SR 90-ST 100's on the monitor. CHRISTY midline intact, IVF infusing as ordered. Kept call light at reach. Noted with non productive cough. 0830: Diet tolerated well. Held Lovenox for plan for biopsy. 0900: S/E by Dr. Fleming, made MD aware still with c/o anxiety at times. Patient complained that she wants something else than Xanax, will review. 0910: No any significant changes noted at this time. Kept clean, warm and dry. Needs attended. Kept call light at reach.
[2018-04-12] MEDS: Magnesium 1GM/D5W 100ML PREMIX 100 ML IV SCH ×2 (10:34→11:36)
[2018-04-12] MEDS ORDERED: MAGNESIUM OXIDE 400 MG TABLET PO ONE (11:00)
[2018-04-12] MEDS: ALPRAZOLAM 0.25 MG TABLET PO PRN (11:36)
[2018-04-12] MEDS: IV NS 0.9% 1,000 ML IV PRN (14:30)
--- NOTE | 2018-04-12 14:36 | NUR ---
BULK FOLDER NOTE 1230: Accompanied patient to US guided biopsy. 1430: Done with USG biopsy. Patient tolerated procedure. No distress noted. no significant changes noted. Served lunch tray. VSS. Paced back to bed.
[2018-04-12] MEDS ORDERED: IOHEXOL-300 100 ML VIAL IV ONE (18:07)
--- NOTE | 2018-04-12 19:35 | NUR ---
ICU/GRADES 1 THRU 6 HOME TEACHER RADIOLOGIST CALLED WITH RESULTS OF THE MRI TO THE HEAD/AUDITORY CANAL DUE TO LOSS OF VISION TO THE RIGHT EYE. REPORT BACK WAS THAT THERE IS THICKING TO THE SCLERA ON BOTH EYES, HOWEVER MORE TO THE RIGHT EYE THAN THE LEFT. THE CORE EYE NEEDS TO BE LOOKED AT CLOSER. SHE THAN SUGGESTED THAT MRI TO THE ORBITS BE CONSIDERED BOTH WITH AND WITHOUT CONTRAST. AND NO MASS WAS SEEN.
--- NOTE | 2018-04-12 19:55 | NUR ---
ICU/DIRECTOR OF ENGINEERING ONCOLOGIST WAS CALLED ABOUT THE RESULTS THAT RADIOLOGIST CALLED WITH RESULTS OF THE MRI TO THE HEAD/AUDITORY CANAL DUE TO LOSS OF VISION TO THE RIGHT EYE. REPORT BACK WAS THAT THERE IS THICKING TO THE SCLERA ON BOTH EYES, HOWEVER MORE TO THE RIGHT EYE THAN THE LEFT. THE CORE EYE NEEDS TO BE LOOKED AT CLOSER. SHE THAN SUGGESTED THAT MRI TO THE ORBITS BE CONSIDERED BOTH WITH AND WITHOUT CONTRAST. AND NO MASS WAS SEEN. DR. DUTTON THAN GAVE THE ORDER TO HAVE MRI DONE TOMORROW BOTH WITH AND WITHOUT CONTRACT FOR FURTHER RESULTS TO SEE THAT CAUSE OF THE THICKING OF SCLERA OF THE EYES.
--- NOTE | 2018-04-12 20:12 | NUR ---
ICU/CHIEF CONTROLLER CENTER PT WAS COUGHING A LOT, GAVE PRN MEDICATION OF ROBITUSSIN DM 5ML FOR THIS. CALL LIGHT WITHIN REACH. NO SHORTNESS OF BREATH SEEN AT THIS TIME. CALL LIGHT WITHIN REACH.
--- NOTE | 2018-04-12 21:22 | NUR ---
PT IS AWAKE ON 6L NC TOLERATING IT WELL. O2 SAT 96%. WILL CONTINUE TO MONITOR. BIPAP S/B.
--- NOTE | 2018-04-12 21:58 | NUR ---
ICU/CREDIT CARD CONTROL CLERK PT COMPLAINED ABOUT PAIN TO THE CHEST AREA, PAIN IS RATED 10/10 TO THIS AREA. NOTIFIED CHARGE NURSE LANEY, MORPHINE 2MG IVP GIVEN FOR THIS. CALL LIGHT WITHIN REACH, NO SHORTNESS OF BREATH SEEN AT THIS TIME. WILL CONTINUE TO MONITOR THIS PT.
[2018-04-12] MEDS: ZOLPIDEM TARTRATE 5 MG TABLET PO PRN (22:52)
--- NOTE | 2018-04-12 22:53 | NUR ---
ICU/KEY ATTENDANT PT REQUESTED SOMETHING TO SLEEP, AMBIEN 5 MG GIVEN PO. PT IS NOT HAVING ANY ACUTE RESPIRATORY DISTRESS, CALL LIGHT WITHIN REACH. WILL CONTINUE TO MONITOR THIS PT.
[2018-04-13] VITALS (31 sets, daily range): BP systolic 99–188; BP diastolic 54–128
[2018-04-13] MEDS: ZOSYN IVPB 3.375 G in IV D5W 50ml IV SCH ×4 (00:17→18:04)
[2018-04-13] MEDS: CYCLOBENZAPRINE 10 MG TABLET PO PRN ×3 (00:18→21:14)
--- NOTE | 2018-04-13 00:47 | NUR ---
ICU/CERTIFIED MEDICAL TECHNICIAN PT COMPLAIN ABOUT PAIN/MUSCLE SPASM TO HER NECK AND SHOULDERS, PT WAS GIVEN FLEXERIL PO FOR THIS. NO ACUTE RESPIRATORY DISTRESS SEEN, AT THIS TIME. CALL LIGHT WITHIN REACH. WILL CONTINUE TO MONITOR THIS.
[2018-04-13] MEDS: MORPHINE SULFATE INJ 2 MG/ML DISP.SYRIN IV PRN ×4 (01:49→12:12)
--- NOTE | 2018-04-13 01:50 | NUR ---
ICU/CAT CRACKER OPERATOR PT COMPLAINED ABOUT PAIN TO LEFT AND RIGHT BREAST AREAS, PAIN IS RATED 8/10 TO THIS AREA. NOTIFIED CHARGE NURSE LANEY, MORPHINE 2MG IVP GIVEN FOR THIS. CALL LIGHT WITHIN REACH, NO SHORTNESS OF BREATH SEEN AT THIS TIME. WILL CONTINUE TO MONITOR PT'S PAIN LEVEL.
--- NOTE | 2018-04-13 03:10 | NUR ---
ICU/ELECTRIC MOTOR WINDERS ASSEMBLER PT COMPLAINED ABOUT HAVING AN PANIC ATTACK, PT WAS GIVEN PO XANAX 0.5MG PO FOR THIS. CALL LIGHT IS WITHIN REACH, NO ACUTE RESPIRATORY DISTRESS SEEN. WILL CONTINUE TO MONITOR THIS PT'S ANXIETY AND ANY FUTURE PANIC ATTACK.
[2018-04-13] MEDS: ALPRAZOLAM 0.25 MG TABLET PO PRN ×2 (03:11→08:52)
[2018-04-13] MEDS: IPRATROPIUM NEB FS 0.5 MG/2.5 ML AMPUL.NEB NEB SCH ×6 (03:23→23:38)
[2018-04-13] MEDS: ALBUTEROL FS 2.5 MG/0.5 ML VIAL.NEB NEB SCH ×6 (03:23→23:38)
[2018-04-13 04:37] LABS: BASOPHILS % (AUTO) 0.2 % (0.0-2.0); EOSINOPHILS % (AUTO) 0.4 % (0.0-6.0); HEMATOCRIT 34 % (33-45); HEMOGLOBIN 11.1 g/dL (11.5-14.8); LYMPHOCYTES # (AUTO) 1.5 /CMM (0.8-4.8); LYMPHOCYTES % (AUTO) 15.3 % (20.0-44.0); MEAN CORPUSCULAR HGB CONC 32 g/dl (31.0-36.0); MEAN CORPUSCULAR VOLUME 84 fL (82-100); MONOCYTES # (AUTO) 0.7 /CMM (0.1-1.30); MONOCYTES % (AUTO) 7.2 % (2.0-12.0); NEUTROPHILS # (AUTO) 7.3 /CMM (1.8-8.9); NEUTROPHILS % (AUTO) 76.9 % (43.0-81.0); PLATELET COUNT (AUTO) 252 /CMM (150-450); RDW COEFFICIENT OF VARIATION 15.3 (11.5-15.0); RED BLOOD CELL COUNT(AUTO) 4.05 MIL/uL (4.0-5.2); WHITE BLOOD COUNT (AUTO) 9.5 K/uL (4.3-11.0)
[2018-04-13] MEDS: GUAIFENESIN/D-METHORPHAN HB 5 ML UDC PO PRN (04:37)
--- NOTE | 2018-04-13 04:38 | NUR ---
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 CALL LIGHT WITHIN REACH. NO SHORTNESS OF BREATH SEEN AT THIS TIME. CALL LIGHT WITHIN REACH.
--- NOTE | 2018-04-13 04:50 | NUR ---
ICU/MASTER HEARTH TECHNICIAN PT COMPLAINED ABOUT PAIN TO LEFT AND RIGHT BREAST AREAS, PAIN IS RATED 10/10 TO THIS AREA. NOTIFIED CHARGE NURSE LANEY, MORPHINE 2MG IVP GIVEN FOR THIS. CALL LIGHT WITHIN REACH. PT IS HAVING SOME SHORTNESS OF BREATH, HOWEVER MOSTLY ASSOCIATED WITH A PANIC ATTACK AT THIS TIME. RT CALLED TO PLACE PT ON BIPAP, DUE TO THE SOB. WHILE WAITING FOR RT, ASKED ABOUT ANY FAMILY MEMBERS THAT COULD BE CALLED TO HELP CALM THE PT AT THIS TIME, HOWEVER PT SAID NO. ALSO ASKED ABOUT CODE STATUS SINCE PT APPEARS TO BE GETTING WORSE, SAID SHE'LL WAIT TILL SHE HAS ALL THE RESULTS OF THE TEST TO MAKE THAT DECISION. THEN EXPLAINED TO PT ABOUT HOSPICE CARE, AND THE OUTCOME OF THIS A POSSIBLE OPTION WHEN SHE GOES HOME AFTER SHE HAS ALL THE TEST RESULTS. RT NOW PLACING PT ON BIPAP.
--- NOTE | 2018-04-13 05:00 | NUR ---
PT PLACED ON BIPAP DO TO INCREASED WOB. RN AWARE. Addendum: 04/13/18 at 0501 by BHAVYA MAYNARD RT Amended: Links added.
[2018-04-13 05:13] LABS: CALCIUM, SERUM 8.9 mg/dL (8.5-10.1); CREATININE 0.7 mg/dL (0.6-1.3); POTASSIUM 3.7 mmol/L (3.5-5.1)
[2018-04-13] MEDS: IV NS 0.9% 1,000 ML IV PRN ×2 (05:36→18:04)
[2018-04-13] MEDS: LEVOTHYROXINE SODIUM 75 MCG TABLET PO SCH (05:51)
--- NOTE | 2018-04-13 06:10 | NUR ---
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 CALL LIGHT WITHIN REACH. WILL CONTINUE TO MONITOR THIS PT.
--- NOTE | 2018-04-13 08:47 | NUR ---
INDUSTRIAL RETROFIT DESIGNER NOTES PATIENT CURRENTLY OF BIPAP , PLACED ON 6LPM NC SPO2 OF 87-90% , NOTED TO BE ANXIOUS , INSTRUCTED TO BE CALM TAKE DEEP BREATHS , WILL CONTINUE TO MONITOR
[2018-04-13] MEDS: predniSONE 20 MG TABLET PO SCH (08:52)
[2018-04-13] MEDS: HYDROCODONE BIT/HOMATROPINE 5 ML UDC PO PRN ×3 (09:04→21:14)
--- NOTE | 2018-04-13 09:15 | NUR ---
DIRECTOR OF FINANCIAL AID NOTES SEEN AND EVALUATED BY DR PARDO , DISCUSSED CURRENT V/S , OFF BIPAP , CURRENTLY ON 6LPM NC SPO2 OF 88-92% NOTED WITH ANXIETY , PER MD CHANGE COUGH SYRUP TO HYDROCAN 5ML Q4PRN FOR COUGH AND DC ROBITUSSIN .
[2018-04-13] MEDS: ENOXAPARIN SODIUM 40 MG/0.4 ML DISP.SYRIN SQ SCH (10:12)
--- NOTE | 2018-04-13 11:07 | NUR ---
BREWERY REPRESENTATIVE NOTES CALLED DR CLAYTON OFFICE AT [facility] WITH [facility] , NOTIFIED THAT OUR MEDICAL DOCTOR IS REQUESTING FOR MEDICAL RECORDS OF THE PATIENT , PER [facility]E MEDICAL RECORDS WILL BE AVAILABLE TOMORROW , WILL FAXED REQUEST @ [phone]
--- NOTE | 2018-04-13 12:30 | NUR ---
HIGH WORKER NOTES KAYLYNN AT [facility]EDSIDE , DISCUSSED LABS , ON 6LPM NC DISCUSSED LATEST V/S , MRI ORDER CANCELLED ADULT PAROLE OFFICER AWARE .
--- NOTE | 2018-04-13 12:37 | NUR ---
HEEL REDUCER NOTES CALLED [facility] , F/U PSYCH CONSULT , PER TECH DR DELACRUZ WILL DO ROUNDS LATER ,
--- NOTE | 2018-04-13 15:00 | NUR ---
CRYOGENIC TRANSPORT DRIVER NOTES PLACED PATIENT ON BIPAP SETTINGS ORDERED , NOTED TO BE ANXIOUS , HR OF 115-120 , RR OF 30-35 , WILL CONTINUE TO MONITOR
[2018-04-13] MEDS: MORPHINE SULFATE INJ 4 MG/ML DISP.SYRIN IV PRN ×2 (15:25→19:03)
[2018-04-13] MEDS ORDERED: MORPHINE SULFATE INJ 2 MG/ML DISP.SYRIN IV PRN (15:30)
--- NOTE | 2018-04-13 16:02 | NUR ---
RODENT EXTERMINATOR NOTES DR DELACRUZ AT BEDSIDE , DISCUSSED PATIENT HAD EPISODES OF ANXIETY ATTACK WHILE OFF BIPAP , NOTED WITH EPISODES OF SCREAMING AND CRYING , DISCUSSED PATIENT DIAGNOSIS AND REQUEST IF XANAX CAN BE CHANGE WITH VALIUM MD AWARE .
--- NOTE | 2018-04-13 16:30 | NUR ---
PRIMER BOXER NOTES PATIENT REQUESTED TO REMOVED BIPAP , AND CHANGE TO NASAL CANNULA @ 6LPM SHE VERBALIZED THAT SHE IS DOING BETTER WITH LESS ANXIETY AT THIS TIME , WILL CONTINUE TO MONITOR
[2018-04-13] MEDS: DIAZEPAM 2 MG TABLET PO PRN (18:20)
--- NOTE | 2018-04-13 19:00 | NUR ---
ADJUNCT WRITING INSTRUCTOR NOTES PATIENT NOTED TO BE ANXIOUS , ON 8LPM SIMPLE MASK , REQUESTING BIPAP , HR OF 120'S , RR OF 30'S SBP OF 150'S , PLACED PT ON BIPAP WITH SETTINGS ORDERED , SPO2 OF 92-97% , MORPHINE 2MG PT COMPLAINING OF HAD AND BACK PAIN 06/09 . REPORT GIVEN TO SEAN FOR CONTINUITY OF CARE
--- NOTE | 2018-04-13 19:10 | NUR ---
RN INITIAL NOTES RECEIVED PATIENT AWAKE ON BED, A/O X4, VERY ANXIOUS. ON BIPAP WITH SETTINGS 18/5, RATE 16, FIO2 40%, SATURATING WELL, NO S/S OF RESP DISTRESS. CURRENTLY ST ON THE MONITOR, HR 100'S. CONTINENT, ABLE TO USE THE BEDPAN AND BEDSIDE COMMODE. RIGHT UPPER ARM MIDLINE WITH NS @ 80MLS/HR, NO BLOOD RETURN BUT EASILY FLUSHED, NO S/S INFILTRATION/INFECTION, DRESSING CDI. BED LOW AND LOCKED, SIDERAILS UP, CALL LIGHT WITHIN REACH. WILL MONITOR
[2018-04-13] MEDS: ZOLPIDEM TARTRATE 5 MG TABLET PO PRN (21:14)
[2018-04-13] MEDS: MIRTAZAPINE 15 MG TABLET PO SCH (21:14)
--- NOTE | 2018-04-13 21:41 | NUR ---
RN NOTES PATIENT REQUESTS TO BE ON NASAL CANNULA. PUT PATIENT ON 5L NASAL CANNULA. WILL MONITOR
--- NOTE | 2018-04-13 22:30 | NUR ---
RN NOTES PATIENT UNABLE TO TOLERATE OFF BIPAP. PATIENT PUT BACK ON BIPAP WITH PREVIOUS SETTINGS
[2018-04-14] VITALS (33 sets, daily range): BP systolic 108–152; BP diastolic 71–107
[2018-04-14] MEDS: ZOSYN IVPB 3.375 G in IV D5W 50ml IV SCH ×4 (00:15→18:12)
[2018-04-14] MEDS: MORPHINE SULFATE INJ 4 MG/ML DISP.SYRIN IV PRN ×5 (02:00→17:23)
[2018-04-14] MEDS: ALBUTEROL FS 2.5 MG/0.5 ML VIAL.NEB NEB SCH ×6 (04:01→23:55)
[2018-04-14] MEDS: IPRATROPIUM NEB FS 0.5 MG/2.5 ML AMPUL.NEB NEB SCH ×6 (04:01→23:55)
[2018-04-14] MEDS: CYCLOBENZAPRINE 10 MG TABLET PO PRN ×3 (04:03→21:02)
[2018-04-14] MEDS: IV NS 0.9% 1,000 ML IV PRN (04:03)
[2018-04-14] MEDS: HYDROCODONE BIT/HOMATROPINE 5 ML UDC PO PRN (04:03)
[2018-04-14 04:30] LABS: BASOPHILS % (AUTO) 0.2 % (0.0-2.0); EOSINOPHILS % (AUTO) 0.9 % (0.0-6.0); HEMATOCRIT 35 % (33-45); HEMOGLOBIN 11.3 g/dL (11.5-14.8); LYMPHOCYTES # (AUTO) 1.9 /CMM (0.8-4.8); LYMPHOCYTES % (AUTO) 19.2 % (20.0-44.0); MEAN CORPUSCULAR HGB CONC 33 g/dl (31.0-36.0); MEAN CORPUSCULAR VOLUME 85 fL (82-100); MONOCYTES # (AUTO) 0.6 /CMM (0.1-1.30); MONOCYTES % (AUTO) 6.2 % (2.0-12.0); NEUTROPHILS # (AUTO) 7.2 /CMM (1.8-8.9); NEUTROPHILS % (AUTO) 73.5 % (43.0-81.0); PLATELET COUNT (AUTO) 277 /CMM (150-450); RDW COEFFICIENT OF VARIATION 15.7 (11.5-15.0); RED BLOOD CELL COUNT(AUTO) 4.11 MIL/uL (4.0-5.2); WHITE BLOOD COUNT (AUTO) 9.8 K/uL (4.3-11.0)
[2018-04-14 04:47] LABS: CALCIUM, SERUM 9.1 mg/dL (8.5-10.1); CREATININE 0.7 mg/dL (0.6-1.3); MAGNESIUM 1.9 mg/dL (1.8-2.4); POTASSIUM 4.7 mmol/L (3.5-5.1)
[2018-04-14] MEDS: DIAZEPAM 2 MG TABLET PO PRN ×2 (05:25→17:24)
--- NOTE | 2018-04-14 06:10 | NUR ---
RN CLOSING NOTES PT REMAINS STABLE OF THE MOMENT. ALL DUE MEDS GIVEN. WILL ENDORSE RENU TO AM RN
[2018-04-14] MEDS: LEVOTHYROXINE SODIUM 75 MCG TABLET PO SCH (06:31)
[2018-04-14] MEDS: predniSONE 20 MG TABLET PO SCH (09:29)
[2018-04-14] MEDS: ENOXAPARIN SODIUM 40 MG/0.4 ML DISP.SYRIN SQ SCH (09:29)
[2018-04-14] MEDS ORDERED: FUROSEMIDE 20 MG/2 ML VIAL IV ONE (12:00)
[2018-04-14] MEDS: ACETAMINOPHEN 325 MG TABLET PO PRN (14:05)
[2018-04-14] MEDS: ANASTROZOLE 1 MG TABLET PO SCH (15:59)
--- NOTE | 2018-04-14 16:35 | NUR ---
Pt called this nurse into room to show a bloody clot that she coughed up. Paged Dr Larsen, the pts oncologist, to report clot to her and she ordered to hold Lovenox until tomorrow when she will evaluate pt.
[2018-04-14] MEDS: NICOTINE PATCH (21MG) 21 MG PATCH.TD24 TD SCH (18:13)
--- NOTE | 2018-04-14 19:15 | NUR ---
DIRECTOR OF PRODUCT DESIGN: RECEIVED PT A/O X 3 WT RESTLESSNESS. PLACED BACK ON BIPAP FROM 5L 02 VIA NC AND TOLERATING SETTINGS ORDERED. NO ACUTE DISTRESS, NO C/O PAIN AT THIS TIME. SR ON FASHION PATTERNMAKER. AFEBRILE. ABLE TO USE BED SIDE COMMODE. CHRISTY MIDLINE INTACT TKO. NO S/S OF INFILTRATION. NO COUGHING OUT OF BLOOD OF THIS TIME. SAFETY PRECAUTION NOTED. WILL CONTINUE TO MONITOR.
[2018-04-14] MEDS: MIRTAZAPINE 15 MG TABLET PO SCH (21:02)
--- NOTE | 2018-04-14 22:10 | NUR ---
SPECTROSCOPIST: REASSESSED AFTER GIVEN FLEXERIL WT GOOD EFFECT. PT VERBALIZED RELIEF FROM MUSCLE SPASM. VOIDED AND HAD BOWEL MOVEMENT ON BED SIDE COMMODE. GOOD [facility]RISTIANA [facility]ARE RENDERED WT ASSISTANCE. SAFETY PRECAUTION NOTED AT ALL TIMES.
[2018-04-15] VITALS (30 sets, daily range): BP systolic 112–168; BP diastolic 61–151
[2018-04-15] MEDS: ZOLPIDEM TARTRATE 5 MG TABLET PO PRN (00:03)
[2018-04-15] MEDS: ZOSYN IVPB 3.375 G in IV D5W 50ml IV SCH ×4 (00:09→18:07)
[2018-04-15] MEDS: IV NS 0.9% 250 ML IV PRN (02:52)
[2018-04-15] MEDS: MORPHINE SULFATE INJ 4 MG/ML DISP.SYRIN IV PRN ×6 (03:30→23:45)
[2018-04-15] MEDS: ALBUTEROL FS 2.5 MG/0.5 ML VIAL.NEB NEB SCH ×6 (03:57→23:28)
[2018-04-15] MEDS: IPRATROPIUM NEB FS 0.5 MG/2.5 ML AMPUL.NEB NEB SCH ×6 (03:57→23:28)
[2018-04-15 04:54] LABS: BASOPHILS % (AUTO) 0.3 % (0.0-2.0); EOSINOPHILS % (AUTO) 1.2 % (0.0-6.0); HEMATOCRIT 36 % (33-45); HEMOGLOBIN 11.7 g/dL (11.5-14.8); LYMPHOCYTES # (AUTO) 2.3 /CMM (0.8-4.8); LYMPHOCYTES % (AUTO) 23.7 % (20.0-44.0); MEAN CORPUSCULAR HGB CONC 32 g/dl (31.0-36.0); MEAN CORPUSCULAR VOLUME 84 fL (82-100); MONOCYTES # (AUTO) 0.7 /CMM (0.1-1.30); MONOCYTES % (AUTO) 6.9 % (2.0-12.0); NEUTROPHILS # (AUTO) 6.5 /CMM (1.8-8.9); NEUTROPHILS % (AUTO) 67.9 % (43.0-81.0); PLATELET COUNT (AUTO) 261 /CMM (150-450); RDW COEFFICIENT OF VARIATION 15.7 (11.5-15.0); WHITE BLOOD COUNT (AUTO) 9.6 K/uL (4.3-11.0)
[2018-04-15 05:00] LABS: CALCIUM, SERUM 9.5 mg/dL (8.5-10.1); CREATININE 0.7 mg/dL (0.6-1.3); POTASSIUM 3.8 mmol/L (3.5-5.1)
[2018-04-15] MEDS: DIAZEPAM 2 MG TABLET PO PRN ×3 (05:43→17:46)
[2018-04-15] MEDS: LEVOTHYROXINE SODIUM 75 MCG TABLET PO SCH (06:36)
--- NOTE | 2018-04-15 06:50 | NUR ---
SEAMLESS TUBE DRAWER: BIPAP SETTINGS ORDERED AND TOLERATED WELL. VALIUM FOR ANXIETY GIVEN WT GOOD EFFECT. MORPHINE GIVEN FOR GEN. BODY PAIN (06/09) AND WILL MONITOR EFFECTIVITY. SAFETY PRECAUTION NOTED AT ALL TIMES.
[2018-04-15] MEDS: predniSONE 20 MG TABLET PO SCH (09:29)
[2018-04-15] MEDS: NICOTINE PATCH (21MG) 21 MG PATCH.TD24 TD SCH (09:29)
[2018-04-15] MEDS: ANASTROZOLE 1 MG TABLET PO SCH (09:30)
[2018-04-15] MEDS: FUROSEMIDE 40 MG/4 ML VIAL IV SCH ×2 (10:13→17:46)
[2018-04-15] MEDS: CYCLOBENZAPRINE 10 MG TABLET PO PRN ×2 (10:15→22:37)
--- NOTE | 2018-04-15 19:30 | NUR ---
BURNER TECHNICIAN: RECEIVED PT ON 6L VIA NC WT BUBBLE HUMIDIFIER, REMAINED A/O X 3. NO ACUTE DISTRESS, NO C/O PAIN. SR-ST ON ELECTRONICS MANUFACTURER. AFEBRILE. INDEPENDENT TO BED MOBILITY AND ABLE TO USE BEDSIDE COMMODE. CHRISTY MIDLINE TKO WT NO S/S OF COMPLICATIONS. HOB AT 45 DEGREES. SAFETY PRECAUTION NOTED. CALL LIGHT WITHIN EASY REACH.
--- NOTE | 2018-04-15 22:00 | NUR ---
SUPERVISOR SPINNING: PLACED ON BIPAP WT SETTINGS ORDERED. TOLERATING WELL WT 02 SAT 96% AND ABOVE. WILL CONTINUE TO MONITOR.
[2018-04-15] MEDS: MIRTAZAPINE 15 MG TABLET PO SCH (22:22)
--- NOTE | 2018-04-15 23:15 | NUR ---
DIGITAL LEARNING PLATFORMS MANAGER: PT. REQUESTED TO BE OFF BIPAP AND SAID SHE'LL TRY TO SLEEP WT NC ON. PLACED BACK ON 6L VIA NC. WILL CONTINUE TO MONITOR.
[2018-04-16] VITALS (27 sets, daily range): BP systolic 100–136; BP diastolic 66–95
--- NOTE | 2018-04-16 00:15 | NUR ---
PROFESSOR OF GENETICS: PLACED BACK ON BIPAP FOR DESATURATION. WILL CONTINUE TO MONITOR.
[2018-04-16] MEDS: ZOSYN IVPB 3.375 G in IV D5W 50ml IV SCH ×4 (00:22→18:01)
[2018-04-16] MEDS: DIAZEPAM 2 MG TABLET PO PRN ×2 (02:56→10:23)
[2018-04-16] MEDS: HYDROCODONE/APAP 5/325MG 1 EACH TABLET PO PRN (02:56)
[2018-04-16] MEDS: IV NS 0.9% 250 ML IV PRN (02:56)
[2018-04-16] MEDS: IPRATROPIUM NEB FS 0.5 MG/2.5 ML AMPUL.NEB NEB SCH ×6 (03:38→23:32)
[2018-04-16] MEDS: ALBUTEROL FS 2.5 MG/0.5 ML VIAL.NEB NEB SCH ×6 (03:38→23:32)
[2018-04-16 04:35] LABS: BASOPHILS % (AUTO) 0.3 % (0.0-2.0); EOSINOPHILS % (AUTO) 0.7 % (0.0-6.0); HEMATOCRIT 37 % (33-45); HEMOGLOBIN 12.1 g/dL (11.5-14.8); LYMPHOCYTES # (AUTO) 2.1 /CMM (0.8-4.8); LYMPHOCYTES % (AUTO) 21.5 % (20.0-44.0); MEAN CORPUSCULAR HGB CONC 32 g/dl (31.0-36.0); MEAN CORPUSCULAR VOLUME 83 fL (82-100); MONOCYTES # (AUTO) 0.6 /CMM (0.1-1.30); NEUTROPHILS # (AUTO) 7.1 /CMM (1.8-8.9); NEUTROPHILS % (AUTO) 71.5 % (43.0-81.0); PLATELET COUNT (AUTO) 253 /CMM (150-450)
[2018-04-16 04:43] LABS: CALCIUM, SERUM 9.6 mg/dL (8.5-10.1); CREATININE 0.8 mg/dL (0.6-1.3); POTASSIUM 3.7 mmol/L (3.5-5.1)
--- NOTE | 2018-04-16 06:14 | NUR ---
pt removed from bipap per pt request Addendum: 04/16/18 at 0614 by ALONDRA HANSEN RT Amended: Links added.
[2018-04-16] MEDS: MORPHINE SULFATE INJ 4 MG/ML DISP.SYRIN IV PRN ×3 (06:20→19:27)
[2018-04-16] MEDS: LEVOTHYROXINE SODIUM 75 MCG TABLET PO SCH ×2 (06:37→08:28)
--- NOTE | 2018-04-16 06:50 | NUR ---
DAIRY MANUFACTURING TECHNOLOGIST: STILL ON 6L 02 VIA NC WT NO ACUTE DISTRESS. VERBALIZED RELIEF FROM BACK OF RT. EYE PAIN AFTER MORPHINE ADMINISTRATION (0/10). ALL MEDS GIVEN ORDERED WT NO ADVERSE CHANGES. SAFETY PRECAUTION NOTED AT ALL TIMES.
--- NOTE | 2018-04-16 07:05 | NUR ---
RN INITIAL NOTES RECEIVED PT AWAKE, A/OX4. ON 02 AT 6LPM VIA NC. HOB ELEVATED. NO SOB NOTED. DENIES ANY PAIN AT THIS TIME. CHRISTY MIDLINE IN PLACE. PT COMFORTABLE. CALL LIGHT WITHIN REACH. WILL MONITOR
[2018-04-16] MEDS: predniSONE 20 MG TABLET PO SCH (08:28)
[2018-04-16] MEDS: FUROSEMIDE 40 MG/4 ML VIAL IV SCH ×2 (08:28→16:33)
[2018-04-16] MEDS: ANASTROZOLE 1 MG TABLET PO SCH (08:28)
[2018-04-16] MEDS: NICOTINE PATCH (21MG) 21 MG PATCH.TD24 TD SCH (08:28)
--- NOTE | 2018-04-16 10:30 | NUR ---
RN NOTES SEEN AND EXAMINED Y DR. GRANADO. PT ON 02 AT 6LPM VIA KS. NO SOB NOTED. HOB ELEVATED. AWARE OF CURRENT LAB VALUES AND CXR RESULT. WILL MONITOR.
--- NOTE | 2018-04-16 14:30 | NUR ---
RN NOTES SEEN AND EXAMINED BY FLETCHER CHAIDEZ. PT ON AT 6LPM VIA MO. NO SOB NOTED. KEPT HOB ELEVATED. CLOTH DOUBLING MACHINE OPERATOR AWARE OF LAB VA;UES AND CXR RESULT. WILL CONTINUE TO MONITOR.
[2018-04-16] MEDS: CYCLOBENZAPRINE 10 MG TABLET PO PRN (16:33)
--- NOTE | 2018-04-16 18:29 | NUR ---
RN CLOSING NOTES PT REMAINS STABLE. NO SIGNIFICANT CHANGE NOTED. REMAINS ON 02 AT 6LPM VIA NC. NO SOB NOTED. KEPT HOB ELEVATED. KEPT CLEAN AND DRY. ALL NEEDS ANTICIPATED AND MET. CALL LIGHT WITHIN REACH. PT COMFORTABLE. WILL ENDORSE FOR CONTINUITY OF CARE.
--- NOTE | 2018-04-16 19:39 | NUR ---
ICU/BOAT FUELER PT COMPLAINED ABOUT PAIN TO THE BOTH SIDES OF CHEST, PAIN IS RATED 10/10 TO THIS AREA. NOTIFIED CHARGE NURSE ED, MORPHINE 2MG IVP GIVEN FOR THIS. CALL LIGHT WITHIN REACH, NO SHORTNESS OF BREATH SEEN AT THIS TIME. WILL CONTINUE TO MONITOR THIS PT AND PAIN LEVEL.
[2018-04-16] MEDS: ACETAMINOPHEN 325 MG TABLET PO PRN (20:51)
--- NOTE | 2018-04-16 21:00 | NUR ---
ICU/HADOOP APPLICATION DEVELOPER PT COMPLAINED ABOUT SEVER HEADACHE, TYLENOL GIVEN PO FOR THIS. PT HAD BEEN GIVEN MORPHINE HOWEVER THIS DIDN'T WORK VERY WELL. CALL LIGHT WITHIN REACH, NO SOB SEEN AND NO ACUTE DISTRESS SEEN AT THIS TIME.
[2018-04-16] MEDS: MIRTAZAPINE 15 MG TABLET PO SCH (21:28)
[2018-04-16] MEDS: HYDROCODONE BIT/HOMATROPINE 5 ML UDC PO PRN (23:19)
--- NOTE | 2018-04-16 23:23 | NUR ---
ICU/BATH MIXER PT WAS COUGHING, GAVE PRN MEDICATION FOR THIS, WILL CONTINUE TO MONITOR THIS PT. CALL LIGHT WITHIN REACH.
[2018-04-17] VITALS (27 sets, daily range): BP systolic 100–135; BP diastolic 54–99
[2018-04-17] MEDS ORDERED: MORPHINE SULFATE INJ 4 MG/ML DISP.SYRIN ONE ×2 (00:10→04:30)
[2018-04-17] MEDS: ZOSYN IVPB 3.375 G in IV D5W 50ml IV SCH ×2 (00:14→06:10)
--- NOTE | 2018-04-17 00:38 | NUR ---
ICU/CROP SETTING OUT MACHINE OPERATOR PT COMPLAINED ABOUT PAIN TO THE CHEST AREA, PAIN IS RATED 10/10 TO THIS AREA. NOTIFIED CHARGE NURSE ED, MORPHINE 2MG IVP GIVEN FOR THIS. HAD TO GO DOWN TO [facility] TO TAKE OUT MORPHINE, 4 MG WAS TAKEN OUT AND WASTED 2 MG. CALL LIGHT WITHIN REACH, NO SHORTNESS OF BREATH SEEN AT THIS TIME. WILL CONTINUE TO MONITOR THIS PT AND PAIN LEVEL.
[2018-04-17] MEDS: ALBUTEROL FS 2.5 MG/0.5 ML VIAL.NEB NEB SCH ×6 (03:07→22:49)
[2018-04-17] MEDS: IPRATROPIUM NEB FS 0.5 MG/2.5 ML AMPUL.NEB NEB SCH ×6 (03:07→22:49)
[2018-04-17] MEDS: MORPHINE SULFATE INJ 4 MG/ML DISP.SYRIN IV PRN ×5 (04:33→22:26)
--- NOTE | 2018-04-17 04:40 | NUR ---
ICU/IMAGER PT COMPLAINED ABOUT PAIN TO THE CHEST AREA UP TO NECK ON THE RIGHT SIDE, PAIN IS RATED 10/10 TO THIS AREA. NOTIFIED CHARGE NURSE ED, MORPHINE 2MG IVP GIVEN FOR THIS. HAD TO GO DOWN TO [facility] TO TAKE OUT MORPHINE. CALL LIGHT WITHIN REACH, NO SHORTNESS OF BREATH SEEN AT THIS TIME. WILL CONTINUE TO MONITOR THIS PT AND PAIN LEVEL.
[2018-04-17 04:53] LABS: BASOPHILS % (AUTO) 0.4 % (0.0-2.0); EOSINOPHILS % (AUTO) 1.2 % (0.0-6.0); HEMATOCRIT 37 % (33-45); LYMPHOCYTES # (AUTO) 2.3 /CMM (0.8-4.8); MEAN CORPUSCULAR HGB CONC 32 g/dl (31.0-36.0); MEAN CORPUSCULAR VOLUME 83 fL (82-100); MONOCYTES # (AUTO) 0.6 /CMM (0.1-1.30); MONOCYTES % (AUTO) 6.6 % (2.0-12.0); NEUTROPHILS # (AUTO) 6.5 /CMM (1.8-8.9); NEUTROPHILS % (AUTO) 67.8 % (43.0-81.0); PLATELET COUNT (AUTO) 287 /CMM (150-450); RDW COEFFICIENT OF VARIATION 15.7 (11.5-15.0); RED BLOOD CELL COUNT(AUTO) 4.47 MIL/uL (4.0-5.2); WHITE BLOOD COUNT (AUTO) 9.6 K/uL (4.3-11.0)
[2018-04-17 05:03] LABS: CALCIUM, SERUM 9.4 mg/dL (8.5-10.1); POTASSIUM 3.7 mmol/L (3.5-5.1)
[2018-04-17] MEDS: DIAZEPAM 2 MG TABLET PO PRN ×3 (05:25→20:09)
--- NOTE | 2018-04-17 05:27 | NUR ---
ICU/JAVA APPLICATION DEVELOPER PT COMPLAINED ABOUT HAVING AN PANIC ATTACK, PT WAS GIVEN PO VALIUM 2MG PO FOR THIS. CALL LIGHT IS WITHIN REACH, NO ACUTE RESPIRATORY DISTRESS SEEN. WILL CONTINUE TO MONITOR THIS PT'S ANXIETY AND ANY FUTURE PANIC ATTACK.
[2018-04-17] MEDS: LEVOTHYROXINE SODIUM 75 MCG TABLET PO SCH (06:31)
--- NOTE | 2018-04-17 06:47 | NUR ---
ICU/MULTIFOCAL BUTTON INSPECTOR PT COULD NOT FIND HER EYE PATCH, PT STARTED CRYING HYSTERICALLY.REASSURED PT THAT IT WAS IN THE BED, HOWEVER PT CONTINUED TO CRY. AFTER 5 MINUTES LOOKING AROUND THE BED FOUND THE PATCH, HOWEVER PT CONTINUED TO CRY. PT APPEARS TO BE GOING THROUGH THE GRIEF PROCESS OF HAVING CANCER. JUST A FEW DAYS AGO PT STATED A CHEMO DRUG FOR HER CANCER. TALKED TO PT AND TRIED TO GET HER TO EXPRESS HER EMOTIONAL NEEDS, AND ENCOURAGE DAY NURSE TO CONTINUE TO TALK TO PT. CALL LIGHT WITHIN REACH.
--- NOTE | 2018-04-17 07:15 | NUR ---
DIRECTOR OF SECURITIES AND REAL ESTATE- INITIAL NOTE RECEIVED PT RESTING IN BED. PT A/O X4. CURRENTLY ON 6L NC, RESPIRATIONS EVEN AND UNLABORED, NO SOB OR DISTRESS PRESENT. BIPAP ON STANDBY FOR PRN USE. BEDSIDE MONITOR REVEALS SINUS TACHYCARDIA. CHRISTY MIDLINE RUNNING NS @ TKO. WILL CONTINUE TO MONITOR.
[2018-04-17] MEDS: FUROSEMIDE 40 MG/4 ML VIAL IV SCH ×2 (09:19→17:39)
[2018-04-17] MEDS: ANASTROZOLE 1 MG TABLET PO SCH (09:19)
[2018-04-17] MEDS: predniSONE 20 MG TABLET PO SCH (09:19)
[2018-04-17] MEDS: NICOTINE PATCH (21MG) 21 MG PATCH.TD24 TD SCH (09:19)
[2018-04-17] MEDS: HYDROCODONE/APAP 5/325MG 1 EACH TABLET PO PRN (11:07)
--- NOTE | 2018-04-17 18:49 | NUR ---
RCVD PT ON 6L NASAL CANNULA. PT PLACED ON NOCTURNAL BIPAP PER MD'S ORDERED. ANTONIA ESTRADA NOTIFIED. BIPAP PLUGGED INTO RED OUTLET. BIPAP ALARMS SET AND AUDIBLE. BREATHING TX GIVEN PER MD'S ORDERED, NO ADVERSE REACTION NOTED. NO RESPIRATORY DISTRESS NOTED AT THIS TIME. WILL CONTINUE TO MONITOR.
--- NOTE | 2018-04-17 19:00 | NUR ---
RN INITIAL NOTES RECEIVED PT AWAKE SITTING ON THE BED, A/O X4. PT IS ON 6L NASAL CANNULA, SATURATING WELL, NO S/S OF RESP DISTRESS. CURRENTLY ST ON THE MONITOR, HR 100-110'S. PT IS CONTINENT, ABLE TO AMBULATE TO BEDSIDE COMMODE NEEDED. RIGHT UPPER ARM MIDLINE SL FLUSHED AND PATENT, NO S/S OF INFILTRATION/INFECTION, DRESSING CDI. BED LOW AND LOCKED, SIDERAILS UP, CALL LIGHT WITHIN REACH. WILL MONITOR
[2018-04-17] MEDS: HYDROCODONE BIT/HOMATROPINE 5 ML UDC PO PRN (20:09)
[2018-04-17] MEDS: MIRTAZAPINE 15 MG TABLET PO SCH (22:26)
[2018-04-17] MEDS: ZOLPIDEM TARTRATE 5 MG TABLET PO PRN (22:26)
[2018-04-18] VITALS (25 sets, daily range): BP systolic 96–137; BP diastolic 56–95
[2018-04-18] MEDS: DIAZEPAM 2 MG TABLET PO PRN ×3 (02:00→22:05)
[2018-04-18] MEDS: IPRATROPIUM NEB FS 0.5 MG/2.5 ML AMPUL.NEB NEB SCH ×6 (03:30→23:36)
[2018-04-18] MEDS: ALBUTEROL FS 2.5 MG/0.5 ML VIAL.NEB NEB SCH ×6 (03:30→23:36)
[2018-04-18 04:35] LABS: BASOPHILS % (AUTO) 0.4 % (0.0-2.0); EOSINOPHILS % (AUTO) 1.2 % (0.0-6.0); HEMATOCRIT 38 % (33-45); HEMOGLOBIN 12.3 g/dL (11.5-14.8); MEAN CORPUSCULAR HGB CONC 33 g/dl (31.0-36.0); MEAN CORPUSCULAR VOLUME 83 fL (82-100); MONOCYTES # (AUTO) 0.7 /CMM (0.1-1.30); MONOCYTES % (AUTO) 5.7 % (2.0-12.0); NEUTROPHILS # (AUTO) 7.8 /CMM (1.8-8.9); NEUTROPHILS % (AUTO) 66.7 % (43.0-81.0); PLATELET COUNT (AUTO) 315 /CMM (150-450); RDW COEFFICIENT OF VARIATION 16.2 (11.5-15.0); RED BLOOD CELL COUNT(AUTO) 4.55 MIL/uL (4.0-5.2); WHITE BLOOD COUNT (AUTO) 11.6 K/uL (4.3-11.0)
[2018-04-18 05:13] LABS: CALCIUM, SERUM 9.3 mg/dL (8.5-10.1); CREATININE 0.8 mg/dL (0.6-1.3); POTASSIUM 3.5 mmol/L (3.5-5.1)
--- NOTE | 2018-04-18 06:15 | NUR ---
RN CLOSING NOTES PT REMAINS STABLE OF THE MOMENT. ALL DUE MEDS GIVEN. WILL ENDORSE RENU TO AM RN
[2018-04-18] MEDS: HYDROCODONE BIT/HOMATROPINE 5 ML UDC PO PRN (06:28)
[2018-04-18] MEDS: LEVOTHYROXINE SODIUM 75 MCG TABLET PO SCH (06:32)
--- NOTE | 2018-04-18 07:00 | NUR ---
RN NOTES RECEIVED PT ON BED, A/O X4. ON 6L NASAL CANNULA, O2 SAT 93%, NO DISTRESS NOTED, ON TELE SR HR IN 90'S . R UPPER ARM MIDLINE SITE CDI , ABLE TO AMBULATE TO BEDSIDE COMMODE NEEDED , BED LOCKED AND IN LOWEST POSITION , SIDE RAILS UPx2, CALL LIGHT WITHIN EASY REACH. WILL MONITOR TO MONITOR
[2018-04-18] MEDS: FUROSEMIDE 40 MG/4 ML VIAL IV SCH ×2 (08:08→16:03)
[2018-04-18] MEDS: ANASTROZOLE 1 MG TABLET PO SCH (08:08)
[2018-04-18] MEDS: NICOTINE PATCH (21MG) 21 MG PATCH.TD24 TD SCH (08:08)
[2018-04-18] MEDS: predniSONE 20 MG TABLET PO SCH (08:08)
[2018-04-18] MEDS: MORPHINE SULFATE INJ 4 MG/ML DISP.SYRIN IV PRN ×4 (10:09→23:44)
--- NOTE | 2018-04-18 10:09 | NUR ---
RN NOTES PT C/O HEADACHE,8/10 PAIN LEVEL . 2MG IV MORPHINE GIVEN PER ORDER . CONTINUE TO MONITOR .
--- NOTE | 2018-04-18 14:00 | NUR ---
RN NOTES PT STABLE , OUT OFF BED TO BSC TO VOID , NO DISTRESS NOTED, CONTINE TO MONITOR.
--- NOTE | 2018-04-18 18:17 | NUR ---
RN NOTES PT REMANIS STABLE , NO SOB NOTED, ON 6L O2 N/C, WILL ENDOSE TO OCCUPATIONAL THERAPIST AIDE NURSE FOR RENU .
--- NOTE | 2018-04-18 20:45 | NUR ---
PT IS AWAKE AND ALERT ON 6L NC O2 SAT 96-97%. NO RESP DISTRESS. PT IS RECEIVING Q4 BREATHING TX. WILL CONTINUE TO MONITOR.
[2018-04-18] MEDS: MIRTAZAPINE 15 MG TABLET PO SCH (22:05)
[2018-04-18] MEDS: ZOLPIDEM TARTRATE 5 MG TABLET PO PRN (23:44)
[2018-04-19] VITALS (24 sets, daily range): BP systolic 96–128; BP diastolic 35–90
--- NOTE | 2018-04-19 01:30 | NUR ---
PT SLEEPING. BIPAP S/B. PT STATED EARLIER SHE DOES NOT WANT TO USE BIPAP. RN AWARE. WILL CONTINUE TO MONITOR. WILL PLACE ON BIPAP IF NEEDED. PT IS ON 6L NC O2 SAT 96%.
[2018-04-19] MEDS: ALBUTEROL FS 2.5 MG/0.5 ML VIAL.NEB NEB SCH ×6 (02:58→23:05)
[2018-04-19] MEDS: IPRATROPIUM NEB FS 0.5 MG/2.5 ML AMPUL.NEB NEB SCH ×6 (02:58→23:05)
--- NOTE | 2018-04-19 06:20 | NUR ---
RN CLOSING NOTES PT REMAINS STABLE OF THE MOMENT. PT REMAINED ON 6L NASAL CANNULA THROUGHOUT THE NIGHT. ALL DUE MEDS GIVEN. WILL ENDORSE RENU TO AM RN
[2018-04-19] MEDS: DIAZEPAM 2 MG TABLET PO PRN ×2 (06:33→14:44)
[2018-04-19] MEDS: LEVOTHYROXINE SODIUM 75 MCG TABLET PO SCH ×2 (06:34→07:54)
--- NOTE | 2018-04-19 07:34 | NUR ---
ATTENDANT CAMPGROUND NOTE PATIENT IN BED . RESTING COMFORTABLY, ON TELE MONITOR. SR AT THIS TIME RT UPPER ARM MID LINE IN PLACE BED IN LOWEST AND LOCKED .ON 6L NC NO SOB NOTED AT THIS TIME ALL NEEDS ATTENDED,WILL CONT TO MONITOR CLOSELY
[2018-04-19] MEDS: MORPHINE SULFATE INJ 4 MG/ML DISP.SYRIN IV PRN ×4 (07:50→20:57)
--- NOTE | 2018-04-19 07:57 | NUR ---
MANHOLE BUILDER NOTE MORPHINE 2MG IVP GIVE FOR PAIN IN HEAD 8\10 SCALE BP 115/78 SAT 90%, SYNTHROID GIVEN BY EXPERIENCED TRUCK DRIVER NURSE
[2018-04-19] MEDS: NICOTINE PATCH (21MG) 21 MG PATCH.TD24 TD SCH (08:30)
[2018-04-19] MEDS: predniSONE 20 MG TABLET PO SCH (08:30)
[2018-04-19] MEDS: ANASTROZOLE 1 MG TABLET PO SCH (08:30)
[2018-04-19] MEDS: FUROSEMIDE 40 MG/4 ML VIAL IV SCH ×2 (08:30→16:24)
--- NOTE | 2018-04-19 09:46 | NUR ---
FLOORPERSON NOTE ALL NEEDS ATTENDED .RESTING COMFORTABLY, NOT IN ACUTE DISTRESS
--- NOTE | 2018-04-19 11:09 | NUR ---
MERCHANT MILL UTILITY WORKER NOTE C\O HEAD PAIN 8\10 SCALE .BP128/78 MORPHINE 2 MG IVP GIVEN ORDERED WILL CONT TO MONITOR CLOSELY
--- NOTE | 2018-04-19 11:36 | NUR ---
RF TECHNICIAN NOTE ON BREATHING TX BY RT ORDERED ,WILL CONT TO MONITOR CLOSELY
[2018-04-19] MEDS: HYDROCODONE BIT/HOMATROPINE 5 ML UDC PO PRN (12:43)
--- NOTE | 2018-04-19 13:18 | NUR ---
FOREST AND CONSERVATION WORKER NOTE WITH SEVERE COUGH NOTED, COUGH MED GIVEN ORDERED
--- NOTE | 2018-04-19 14:48 | NUR ---
STERILE PROCESSING TECHNICIAN NOTE FEELS WITH SEVERE ANXIETY WITH CRYING DIAZEPAM 2 MG PO GIVEN ORDERED, BP115/78 SAT94 Addendum: 04/19/18 at 1538 by PIPO REILLY RN ON BREATHING TX AND MORPHINE FOR PAIN 8\10 SCALE GIVEN ORDERED ,ARSENIO Alcaraz\Hannah
[2018-04-19] MEDS ORDERED: DIAZEPAM 2 MG TABLET PO ONE (16:00)
--- NOTE | 2018-04-19 16:04 | NUR ---
AUTOMATIC DISPENSER MECHANIC NOTE PER DR KHALIF BARFIELD TO GIVE 2 MG OF DIAZEPAM, PATIENT STILL HAS HIGH LEVEL OF ANXIETY BP 115/78 ,SAT 91%, WILL MONITOR CLOSELY,PER DR KHALIF BARFIELD TO TRANSFER TO [facility] , ALSO OK TO TO STAY IN HOSPITAL,NO ARRANGEMENT DONE FOR [facility] BY TRUSS ASSEMBLER , STILL ON 6L NC OF O2
--- NOTE | 2018-04-19 18:00 | NUR ---
CONTACT CENTER MANAGER NOTE PER DR CUADRA OK TO TRANSFER TO TELE
--- NOTE | 2018-04-19 19:00 | NUR ---
LABORER MARINE TERMINAL NOTE TRANSFERRED TO TELE UNIT BY BED WITH ACLS PROTOCOL WITH STABLE CONDITION , REPORT GIVEN TO HOMERO KNIGHT
--- NOTE | 2018-04-19 19:15 | NUR ---
TOURS CAPTAIN NOTES RECEIVED PT IN BED, AWAKE, A/O X 4 , VERBALLY RESPONSIVE. NO DISTRESS, NOR SOB AT THIS TIME. ON 02 @ 6LPM VIA NC TOLERATED WELL, 02 SAT IS 96 % AT THIS TIME. ST 102 ON TELE MONITOR. CHRISTY MIDLINE, INTACT AND PATENT, NO S/S OF INFILTRATION NOTED. DENIES ANY PAIN OR DISCOMFORT AT THIS TIME. ALL NEEDS ATTENDED AND MET . KEPT COMFORTABLE. SAFETY PRECAUTIONS OBSERVED. CALL LIGHT WITHIN REACH. WILL CONT TO MONITOR.
[2018-04-19] MEDS: MIRTAZAPINE 15 MG TABLET PO SCH (22:04)
--- NOTE | 2018-04-19 23:06 | NUR ---
PT ON 6LNC, NO RESP DISTRESS NOTED. PT IS ALERT AND ORIENTED. BIPAP STANDBY. WILL CONTINUE TO MONITOR
[2018-04-20] VITALS: BP 126/73
[2018-04-20] MEDS: ZOLPIDEM TARTRATE 5 MG TABLET PO PRN (00:40)
--- NOTE | 2018-04-20 00:45 | NUR ---
pt asleep at this time, appears comfortable, arouses easily. no distress, no sob . no s/s of pain or discomfort at this time. all needs attended and anticipated. call light within reach. safetry precautions observed. wikll cont to monitor.
[2018-04-20] MEDS: ALBUTEROL FS 2.5 MG/0.5 ML VIAL.NEB NEB SCH ×6 (03:30→23:52)
[2018-04-20] MEDS: IPRATROPIUM NEB FS 0.5 MG/2.5 ML AMPUL.NEB NEB SCH ×6 (03:30→23:52)
[2018-04-20 04:00] VITALS: BP 106/67
[2018-04-20 04:21] VITALS: BP 106/67
--- NOTE | 2018-04-20 06:27 | NUR ---
BRICK CHIMNEY BUILDER NOTES PT IN BED, RESTING COMFORTABLY AT THIS TIME, AROUSES EASILY. A/O X 4 , VERBALLY RESPONSIVE. NO DISTRESS, NOR SOB AT THIS TIME. ON 02 @ 5LPM VIA NC TOLERATED WELL, 02 SAT IS 96 % AT THIS TIME. CHRISTY MIDLINE, INTACT AND PATENT, NO S/S OF INFILTRATION NOR INFECTION NOTED. DENIES ANY PAIN OR DISCOMFORT AT THIS TIME. ALL NEEDS ATTENDED AND MET . KEPT COMFORTABLE. SAFETY PRECAUTIONS OBSERVED. CALL LIGHT WITHIN REACH. WILL ENDORSE TO NEXT SHIFT ACCORDINGLY.
[2018-04-20 06:35] LABS: BASOPHILS % (AUTO) 0.3 % (0.0-2.0); EOSINOPHILS % (AUTO) 0.9 % (0.0-6.0); HEMATOCRIT 41 % (33-45); HEMOGLOBIN 13.3 g/dL (11.5-14.8); LYMPHOCYTES # (AUTO) 3.4 /CMM (0.8-4.8); MEAN CORPUSCULAR HGB CONC 32 g/dl (31.0-36.0); MEAN CORPUSCULAR VOLUME 83 fL (82-100); MONOCYTES # (AUTO) 0.5 /CMM (0.1-1.30); MONOCYTES % (AUTO) 4.4 % (2.0-12.0); NEUTROPHILS # (AUTO) 7.6 /CMM (1.8-8.9); NEUTROPHILS % (AUTO) 65.4 % (43.0-81.0); PLATELET COUNT (AUTO) 299 /CMM (150-450); RDW COEFFICIENT OF VARIATION 15.5 (11.5-15.0); RED BLOOD CELL COUNT(AUTO) 4.93 MIL/uL (4.0-5.2); WHITE BLOOD COUNT (AUTO) 11.7 K/uL (4.3-11.0)
[2018-04-20 06:49] LABS: CALCIUM, SERUM 9.8 mg/dL (8.5-10.1); CREATININE 0.9 mg/dL (0.6-1.3); MAGNESIUM 2.2 mg/dL (1.8-2.4); PHOSPHORUS 3.9 mg/dL (2.5-4.9)
--- NOTE | 2018-04-20 07:20 | NUR ---
CLERICAL ADJUDICATOR NOTES PATIENT IN BED ALERT ORIENTED X 3. NO ACUTE DISTRESS NOTED. BREATHING UNLABORED. NO SOB NOTED. ACCESS PATENT AND INTACT, NO REDNESS OR SWELLING NOTED. SAFETY MEASURES IN PLACE. HOB ELEVATED. CALL LIGHT WITHIN REACH. WILL CONTINUE TO MONITOR ACCORDINGLY.
[2018-04-20 08:00] VITALS: BP 108/68
[2018-04-20] MEDS: ANASTROZOLE 1 MG TABLET PO SCH (08:30)
[2018-04-20] MEDS: FUROSEMIDE 40 MG/4 ML VIAL IV SCH ×2 (08:30→16:30)
[2018-04-20] MEDS: NICOTINE PATCH (21MG) 21 MG PATCH.TD24 TD SCH (08:31)
[2018-04-20] MEDS: predniSONE 20 MG TABLET PO SCH (08:31)
[2018-04-20] MEDS: HYDROCODONE/APAP 5/325MG 1 EACH TABLET PO PRN ×2 (10:22→21:52)
--- NOTE | 2018-04-20 10:25 | NUR ---
RN NOTES SEEN AND EVALUATED BY ROBERTO ANDREA WITH NEW ORDERS MADE, NOTED AND CARRIED OUT.
[2018-04-20] MEDS ORDERED: BISACODYL (5 MG) 5 MG TABLET.DR PO PRN (10:30)
[2018-04-20] MEDS: POLYETHYLENE GLYCOL 3350 17 GM POWD.PACK PO PRN (10:56)
[2018-04-20] MEDS: POTASSIUM CHLORIDE 20 MEQ TAB.PRT.SR PO SCH ×3 (11:00→13:15)
--- NOTE | 2018-04-20 11:25 | NUR ---
JALEN met with pt. bedside along with case management associate Lindsey Skinner to offer resources and provide emotional support. Pt. is alert and oriented x 4. Pt. is very anxious and gets overwhelmed easily. SW provided active listening. Pt. states that her is also disabled and has no insurance. Pt. states Maria stated that she would apply for medi-vahid for her and her . JALEN confirmed with Maria, insurance liaison that she did apply for both of them. JALEN informed pt. about it and stated she should receive both the Medi-vahid cards in the mail in three weeks. JALEN also informed pt. that Maria did initiate the food stamps process with [employer], however pt. will have to go to [employer] in person and follow up. Pt. understood. Pt. has been seen by psychiatrist Dr. Bueno and has been prescribed Valium for anxiety. JALEN gave pt. list of [facility], Women's health clinics and brochure to [employer], a cancer support and resource center. Pt. states she belongs to [facility] and has used their resources in the past. Pt. denies suicidal and homicidal ideations at this time. No other social service needs are required at this time. SW is available, if needed.
--- NOTE | 2018-04-20 11:53 | NUR ---
JALEN called [facility] and spoke to social service agency director Susanne Manitlla and applied for [facility] for the pt. Pt's [facility] case number is [id number]. Addendum: 04/20/18 at 1206 by REYNA RAO JALEN met with pt. bedside and gave her the [facility] case number and informed her that she will be receiving a physician's form in the mail in the next few days and to have it completed by her physician and sent back to [facility] social service agency director. Pt. understood.
--- NOTE | 2018-04-20 14:29 | NUR ---
RN NOTES SEEN AND EVALUATED BY DR PAYTON WITH NEW ORDERS MADE, NOTED AND CARRIED OUT.
[2018-04-20] MEDS: LORAZEPAM 1 MG TABLET PO PRN (14:40)
[2018-04-20 16:00] VITALS: BP 107/81
--- NOTE | 2018-04-20 18:55 | NUR ---
MS RN NOTES PATIENT IN BED ALERT ORIENTED X 3. NO ACUTE DISTRESS NOTED. BREATHING UNLABORED. NO SOB NOTED. ACCESS PATENT AND INTACT, NO REDNESS OR SWELLING NOTED. DUE MEDICATIONS GIVEN, NO ASE NOTED. NEEDS ATTENDED AND ANTICIPATED. SAFETY MEASURES IN PLACE. HOB ELEVATED. CALL LIGHT WITHIN REACH. WILL ENDORSE TO NIGHT NURSE FOR CONTINUITY OF CARE.
--- NOTE | 2018-04-20 19:10 | NUR ---
MS RN NOTES RECEIVED PT IN BED, AWAKE, A/O X 4 , VERBALLY RESPONSIVE. NO DISTRESS, NO SOB AT THIS TIME. ON 02 @ 5LPM VIA NC TOLERATED WELL, 02 SAT IS 95 % AT THIS TIME. CHRISTY MIDLINE, INTACT AND PATENT, NO S/S OF INFILTRATION NOTED. DENIES ANY PAIN OR DISCOMFORT AT THIS TIME. ALL NEEDS ATTENDED AND MET . KEPT COMFORTABLE. SAFETY PRECAUTIONS OBSERVED. CALL LIGHT WITHIN REACH. WILL CONTINUE TO MONITOR.
[2018-04-20 20:00] VITALS: BP 110/56
[2018-04-20] MEDS: MIRTAZAPINE 15 MG TABLET PO SCH (21:43)
--- NOTE | 2018-04-20 21:52 | NUR ---
PT C/O RIGHT EYE PAIN AND LEFT RIB AREA PAIN /, NON PHARMACOLOGICAL INTERVENTION RENDERED INEFFECTIVE, PT REQUESTED FOR NORCO 5/325 GIVEN ORDERED, BP : 110/56, HR : 101, RR : 20, 02 SAT : 95 % . WILL CONT TO MONITOR.
[2018-04-21] MEDS: ZOLPIDEM TARTRATE 5 MG TABLET PO PRN ×2 (01:33→23:22)
[2018-04-21] MEDS: IPRATROPIUM NEB FS 0.5 MG/2.5 ML AMPUL.NEB NEB SCH ×6 (03:23→22:56)
[2018-04-21] MEDS: ALBUTEROL FS 2.5 MG/0.5 ML VIAL.NEB NEB SCH ×6 (03:23→22:56)
--- NOTE | 2018-04-21 06:30 | NUR ---
MS RN NOTES PT IN BED, RESTING COMFORTABLY, A/O X 4 , VERBALLY RESPONSIVE. NO DISTRESS, NO SOB AT THIS TIME. ON 02 @ 5LPM VIA NC TOLERATED WELL, 02 SAT IS 95 % AT THIS TIME. CHRISTY MIDLINE, INTACT AND PATENT, NO S/S OF INFILTRATION NOTED. DENIES ANY PAIN OR DISCOMFORT AT THIS TIME. ALL NEEDS ATTENDED AND MET . KEPT COMFORTABLE. SAFETY PRECAUTIONS OBSERVED. CALL LIGHT WITHIN REACH. WILL ENDORSE TO NEXT SHIFT FOR RENU.
[2018-04-21 06:56] LABS: BASOPHILS % (AUTO) 0.4 % (0.0-2.0); EOSINOPHILS % (AUTO) 0.7 % (0.0-6.0); HEMATOCRIT 37 % (33-45); HEMOGLOBIN 12.2 g/dL (11.5-14.8); LYMPHOCYTES # (AUTO) 2.6 /CMM (0.8-4.8); LYMPHOCYTES % (AUTO) 25.8 % (20.0-44.0); MEAN CORPUSCULAR HGB CONC 33 g/dl (31.0-36.0); MEAN CORPUSCULAR VOLUME 82 fL (82-100); MONOCYTES # (AUTO) 0.5 /CMM (0.1-1.30); MONOCYTES % (AUTO) 5.2 % (2.0-12.0); NEUTROPHILS # (AUTO) 6.9 /CMM (1.8-8.9); NEUTROPHILS % (AUTO) 67.9 % (43.0-81.0); PLATELET COUNT (AUTO) 254 /CMM (150-450); RDW COEFFICIENT OF VARIATION 16.2 (11.5-15.0); RED BLOOD CELL COUNT(AUTO) 4.51 MIL/uL (4.0-5.2); WHITE BLOOD COUNT (AUTO) 10.2 K/uL (4.3-11.0)
[2018-04-21] MEDS: LEVOTHYROXINE SODIUM 75 MCG TABLET PO SCH (07:04)
[2018-04-21 07:18] LABS: CALCIUM, SERUM 9.3 mg/dL (8.5-10.1); CREATININE 0.8 mg/dL (0.6-1.3); PHOSPHORUS 3.9 mg/dL (2.5-4.9)
[2018-04-21 08:00] VITALS: BP 102/69
--- NOTE | 2018-04-21 08:00 | NUR ---
RN NOTES RECEIVED PATIENT IN THE BED A/O X4. PATIENT ON O2-2L NC, COMPLAINING OF SOB WHEN WALKING. NO ACUTE RESPIRATORY DISTRESS, SCHEDULED MEDICATION ADMINISTERED, V/S STABLE, ENCOURAGED TO INCREASE FLUID INTAKE. PATIENT AMBULATORY USING BATHROOM. PATIENT REFUSED PAIN AT THIS TIME. CALL LIGHT WITHIN TO REACH. SAFETY PRECAUTION MAINTAINED ALL THE TIME.
[2018-04-21] MEDS: NICOTINE PATCH (21MG) 21 MG PATCH.TD24 TD SCH (08:11)
[2018-04-21] MEDS: FUROSEMIDE 40 MG/4 ML VIAL IV SCH ×2 (08:11→16:58)
[2018-04-21] MEDS: ANASTROZOLE 1 MG TABLET PO SCH (08:11)
[2018-04-21] MEDS: predniSONE 20 MG TABLET PO SCH (08:11)
[2018-04-21] MEDS: LORAZEPAM 1 MG TABLET PO PRN (08:28)
--- NOTE | 2018-04-21 08:28 | NUR ---
RN NOTES ADMINISTERED ATIVAN 1 MG PO PRN FOR ANXIETY, CRYING, V/S TAKEN BP-102/69, P-95, CONTINUED MONITORING.
[2018-04-21] MEDS: POTASSIUM CHLORIDE 20 MEQ TAB.PRT.SR PO SCH ×3 (10:04→11:10)
[2018-04-21] MEDS: MORPHINE SULFATE INJ 4 MG/ML DISP.SYRIN IV PRN (11:56)
--- NOTE | 2018-04-21 11:56 | NUR ---
RN NOTES ADMINISTERED MORPHINE 0.5 MG /ML IV PUSH PER PATIENT REQUEST, V/S TAKEN BP -100/68, P-93, ENCOURAGED TO INCREASE FLUID INTAKE, CALL LIGHT WITHIN TO REACH,. CONTINUED MONITORING.
--- NOTE | 2018-04-21 15:17 | NUR ---
RN NOTES PATIENT RESTING IN THE BED, MEDICATION WERE ADMINISTERED FOR PAIN EFFECTIVE, STABLE AT THIS TIME. CALL LIGHT WITHIN TO REACH, CONTINUED MONITORING.
[2018-04-21 16:00] VITALS: BP 116/74
[2018-04-21] MEDS: DIAZEPAM 2 MG TABLET PO PRN (16:58)
--- NOTE | 2018-04-21 16:58 | NUR ---
RN NOTES ADMINISTERED VALIUM 2 MG PO PRN FOR ANXIETY, CONTINUED MONITORING.
[2018-04-21] MEDS: HYDROCODONE/APAP 5/325MG 1 EACH TABLET PO PRN (19:09)
--- NOTE | 2018-04-21 19:09 | NUR ---
RN NOTES ADMINISTERED NARCO 5/325 MG PO PRN FOR HEADACHE 04/09 PER PATIENT REQUEST. V/S TAKEN BP -116/74, P-97, ENCOURAGED TO INCREASE FLUID INTAKE, ALSO ADMINISTERED SCHEDULED MEDICATION, PT ON 02-2L NC. CALL LIGHT WITHIN TO REACH. PATIENT REFUSED SOB AT THIS TIME. ENDORSED ONCOMING NURSE FOR PLAN OF CARE.
--- NOTE | 2018-04-21 19:23 | NUR ---
MS RN NOTES RECEIVED PT IN BED, AWAKE, A/O X 4 , VERBALLY RESPONSIVE. RT AT BEDSIDE. NO DISTRESS, NO SOB AT THIS TIME. ON 02 @ 5LPM VIA NC TOLERATED WELL, 02 SAT IS 95 % AT THIS TIME. CHRISTY MIDLINE, INTACT AND PATENT, NO S/S OF INFILTRATION NOR INFECTION NOTED. DENIES ANY PAIN OR DISCOMFORT AT THIS TIME. ALL NEEDS ATTENDED AND MET . KEPT COMFORTABLE. SAFETY PRECAUTIONS OBSERVED. CALL LIGHT WITHIN REACH. WILL CONTINUE TO MONITOR.
[2018-04-21 20:00] VITALS: BP 112/82
[2018-04-21] MEDS: MIRTAZAPINE 15 MG TABLET PO SCH (21:35)
[2018-04-22] MEDS: ALBUTEROL FS 2.5 MG/0.5 ML VIAL.NEB NEB SCH ×6 (03:32→23:37)
[2018-04-22] MEDS: IPRATROPIUM NEB FS 0.5 MG/2.5 ML AMPUL.NEB NEB SCH ×6 (03:32→23:37)
[2018-04-22] MEDS: LEVOTHYROXINE SODIUM 75 MCG TABLET PO SCH (06:37)
--- NOTE | 2018-04-22 06:50 | NUR ---
MS RN NOTES PT IN BED, RESTING AT THIS TIME, APPEARS COMFORTABLE, AROUSES EASILY. A/O X 4 , VERBALLY RESPONSIVE. NO DISTRESS, NO SOB AT THIS TIME. ON 02 @ 5LPM VIA NC TOLERATED WELL. CHRISTY MIDLINE, INTACT AND PATENT, NO S/S OF INFILTRATION NOR INFECTION NOTED. NO C/O ANY PAIN OR DISCOMFORT AT THIS TIME. ALL NEEDS ATTENDED AND MET . KEPT COMFORTABLE. ALL DUE MEDS GIVEN . SAFETY PRECAUTIONS OBSERVED. CALL LIGHT WITHIN REACH. WILL ENDORSE TO NEXT SHIFT ACCORDINGLY. .
--- NOTE | 2018-04-22 07:30 | NUR ---
MS RN OPENING NOTES RECEIVED PATIENT IN STABLE CONDITION. IN NO APPARENT DISTRESS. BEDSIDE RAILS ARE UPX2. BED IS LOCKED AND LOWERED. CALL LIGHT IS WITHIN REACH. IV LINE IS INTACT AND PATENT. PATIENT IS CURRENTLY RECEIVING BREATHING TREATMENT. WILL CONTINUE TO MONITOR.
[2018-04-22 07:32] LABS: BASOPHILS % (AUTO) 0.4 % (0.0-2.0); EOSINOPHILS % (AUTO) 1.1 % (0.0-6.0); HEMATOCRIT 35 % (33-45); HEMOGLOBIN 11.4 g/dL (11.5-14.8); LYMPHOCYTES % (AUTO) 27.5 % (20.0-44.0); MEAN CORPUSCULAR HGB CONC 33 g/dl (31.0-36.0); MEAN CORPUSCULAR VOLUME 83 fL (82-100); MONOCYTES # (AUTO) 0.5 /CMM (0.1-1.30); MONOCYTES % (AUTO) 4.8 % (2.0-12.0); NEUTROPHILS # (AUTO) 7.3 /CMM (1.8-8.9); NEUTROPHILS % (AUTO) 66.2 % (43.0-81.0); PLATELET COUNT (AUTO) 253 /CMM (150-450); RDW COEFFICIENT OF VARIATION 15.8 (11.5-15.0); RED BLOOD CELL COUNT(AUTO) 4.23 MIL/uL (4.0-5.2); WHITE BLOOD COUNT (AUTO) 11.1 K/uL (4.3-11.0)
[2018-04-22 07:43] LABS: CREATININE 0.9 mg/dL (0.6-1.3); MAGNESIUM 2.1 mg/dL (1.8-2.4); POTASSIUM 3.3 mmol/L (3.5-5.1)
[2018-04-22 08:00] VITALS: BP 113/80
[2018-04-22] MEDS: MORPHINE SULFATE INJ 4 MG/ML DISP.SYRIN IV PRN ×2 (08:37→17:59)
[2018-04-22] MEDS: NICOTINE PATCH (21MG) 21 MG PATCH.TD24 TD SCH (09:17)
[2018-04-22] MEDS: FUROSEMIDE 40 MG/4 ML VIAL IV SCH ×2 (09:18→16:34)
[2018-04-22] MEDS: predniSONE 20 MG TABLET PO SCH (09:18)
[2018-04-22] MEDS: ANASTROZOLE 1 MG TABLET PO SCH (09:18)
[2018-04-22] MEDS ORDERED: POTASSIUM CHLORIDE 20 MEQ TAB.PRT.SR PO SCH (11:30)
[2018-04-22 14:28] LABS: ABG BASE EXCESS 6.6 mmol/L; ABG OXYGEN SATURATION 82.9 % (92.0-98.5); ABG PCO2 47.9 mmHg (35.0-45.0); ABG PO2 46.9 mmHg (75.0-100.0); AaDO2 45.5 mmHg; COHb 0.1 % (0.5-1.5); MetHb 0.7 % (0.0-1.5); O2Hb 82.2 % (94.0-97.0); SITE, ABG Right Radial; VENT MODE, BG ROOM AIR
[2018-04-22 16:00] VITALS: BP 117/69
[2018-04-22] MEDS: DIAZEPAM 2 MG TABLET PO PRN (16:34)
--- NOTE | 2018-04-22 18:27 | NUR ---
MS RN CLOSING NOTES PATIENT IS IN STABLE CONDITION. IN NO APPARENT DISTRESS. BEDSIDE RAILS ARE UPX2. BED IS LOCKED AND LOWERED. CALL LIGHT IS WITHIN REACH. IV LINE IS INTACT AND PATENT. WILL ENDORSE CARE TO MARKETING ASSISTANT MANAGER NURSE FOR RENU.
--- NOTE | 2018-04-22 19:35 | NUR ---
MS RN NOTE RECEIVED PATIENT FROM DAY SHIFT, PATIENT IS ALERT AND ORIENTEDX4, DENIES RESPIRATORY DISTRESS OR PAIN AT THIS TIME. RIGHT UPPER ARM MIDLINE IS PATENT AND INTACT, SL ONLY. SRX2, BED IN LOW POSITION, CALL LIGHT WITHIN REACH, WILL CONTINUE TO MONITOR PATIENT.
[2018-04-22 20:00] VITALS: BP 110/72
[2018-04-22] MEDS: MIRTAZAPINE 15 MG TABLET PO SCH (21:43)
[2018-04-22] MEDS: ZOLPIDEM TARTRATE 5 MG TABLET PO PRN (23:16)
[2018-04-23] MEDS: ALBUTEROL FS 2.5 MG/0.5 ML VIAL.NEB NEB SCH ×6 (03:40→23:25)
[2018-04-23] MEDS: IPRATROPIUM NEB FS 0.5 MG/2.5 ML AMPUL.NEB NEB SCH ×6 (03:40→23:25)
[2018-04-23 06:54] LABS: CALCIUM, SERUM 9.3 mg/dL (8.5-10.1); CREATININE 0.9 mg/dL (0.6-1.3); MAGNESIUM 2.4 mg/dL (1.8-2.4); PHOSPHORUS 4.1 mg/dL (2.5-4.9); POTASSIUM 3.1 mmol/L (3.5-5.1)
--- NOTE | 2018-04-23 07:23 | NUR ---
MS RN NOTE PATIENT IS SLEEPING IN BED COMFORTABLY, NO ACUTE EVENT NOTED THROUGHOUT THE SHIFT. ALL NEEDS ARE MET, DUE MEDS GIVEN. MED LINE ON RIGHT UPPER ARM IS PATENT AND INTACT, SL ONLY. ENDORSED TO DAY SHIFT NURSE FOR RENU.
--- NOTE | 2018-04-23 07:43 | NUR ---
MS RN OPENING NOTES RECEIVED PATIENT IN STABLE CONDITION. IN NO APPARENT DISTRESS. BEDSIDE RAILS ARE UPX2. BED IS LOCKED AND LOWERED. CALL LIGHT IS WITHIN REACH. IV LINE IS INTACT AND PATENT. WILL CONTINUE TO MONITOR.
[2018-04-23] MEDS: LEVOTHYROXINE SODIUM 75 MCG TABLET PO SCH (07:57)
[2018-04-23 08:00] VITALS: BP 117/83
[2018-04-23] MEDS: predniSONE 20 MG TABLET PO SCH (08:00)
[2018-04-23] MEDS: ANASTROZOLE 1 MG TABLET PO SCH (08:00)
[2018-04-23] MEDS: FUROSEMIDE 40 MG/4 ML VIAL IV SCH ×2 (08:00→16:17)
[2018-04-23] MEDS: NICOTINE PATCH (21MG) 21 MG PATCH.TD24 TD SCH (08:06)
[2018-04-23] MEDS: POTASSIUM CHLORIDE 20 MEQ TAB.PRT.SR PO SCH ×2 (10:40→10:41)
[2018-04-23] MEDS: HYDROCODONE/APAP 5/325MG 1 EACH TABLET PO PRN ×2 (10:40→20:53)
[2018-04-23] MEDS: DIAZEPAM 2 MG TABLET PO PRN (15:24)
[2018-04-23 16:00] VITALS: BP 123/80
--- NOTE | 2018-04-23 18:27 | NUR ---
MS RN CLOSING NOTES PATIENT IS ALERT AND ORIENTED. IN NO APPARENT DISTRESS. BEDSIDE RAILS ARE UPX2. BED IS LOCKED AND LOWERED. CALL LIGHT IS WITHIN REACH. IV LINE IS INTACT AND PATENT. ALL NEEDS WERE MET. WILL ENDORSE CARE TO LINING FOLDER NURSE FOR RENU.
--- NOTE | 2018-04-23 19:30 | NUR ---
RN MS OPENING NOTES RECEIVED PATIENT IN BED AWAKE, ALERT AND ORIENTED X 4, RESPIRATIONS EVEN AND UNLABORED WITH EQUAL RISE AND FALL OF CHEST, ON 5 LITERS VIA NC O2 SAT AT 96%. DENIES ANY PAIN OR DISCOMFORT AT THIS TIME, RIGHT UPPER ARM MIDLINE GAUGE #20 INTACT AND PATENT NO, REDNESS NO INFILTRATION PRESENT. ORIENTED TO STAFF AND CALL LIGHT. CALL LIGHT KEPT WITHIN REACH, ALL NEEDS ATTENDED AT THIS TIME, WILL CONTINUE TO MONITOR.
[2018-04-23 20:00] VITALS: BP 114/73
--- NOTE | 2018-04-23 20:53 | NUR ---
RN MS NOTES PATIENT COMPLAIN OF PAIN TO LEFT EYE AND HEADACHE 05/09, PATIENT REQUESTING TO HAVE NORCO PRN, PRN NORCO 5/325 GIVEN ORDERED, VITAL SIGNS ARE WITHIN NORMAL LIMITS. WILL CONTINUE TO MONITOR.
[2018-04-23] MEDS: ZOLPIDEM TARTRATE 5 MG TABLET PO PRN (23:09)
[2018-04-23] MEDS: MIRTAZAPINE 15 MG TABLET PO SCH (23:09)
--- NOTE | 2018-04-23 23:13 | NUR ---
RN MS NOTES PATIENT REQUESTING FOR AMBIEN STATES SHE CANT SLEEP. PRN GIVEN , VITAL SIGNS WITHIN NORMAL LIMITS, WILL CONTINUE TO MONITOR.
[2018-04-24] MEDS: IPRATROPIUM NEB FS 0.5 MG/2.5 ML AMPUL.NEB NEB SCH ×6 (03:00→23:30)
[2018-04-24] MEDS: ALBUTEROL FS 2.5 MG/0.5 ML VIAL.NEB NEB SCH ×6 (03:00→23:30)
[2018-04-24] MEDS: LEVOTHYROXINE SODIUM 75 MCG TABLET PO SCH (06:49)
--- NOTE | 2018-04-24 07:12 | NUR ---
MS RN opening note Received bedside SBAR report on the patient. Patient is A/Ox4, awake and responsive. Anxious and depressed. Presents with difficulty accepting diagnosis and coping with current health status. Patient is in bed, bed is locked in lowest position, side rails up x2. Patient is ambulatory and oriented to own abilities. Chest is rising equally/bilaterally. Denies pain discomfort at this time. RN established therapeutic relationship with the patient. Patient is educated on methods to control and cope with stress such as guided imaging, breathing exercises and distraction. Patient verbalized understanding of the teachings. Reports relieved anxiety. All needs are met. Call light within reach. Educated to call for assistance using the call light. Verbalized understanding. Will continue to assess/monitor throughout the shift.
--- NOTE | 2018-04-24 07:25 | NUR ---
RN MS CLOSING NOTES PATIENT IN BED , AWAKE ALERT AND ORIENTED X 4 BREATHING EVEN AND UNLABORED, WITH EQUAL RISE AND FALL OF CHEST,NOTED 5 LITERS NC O2 SAT AT 96%. RIGHT UPPER ARM MIDLINE, INTACT AND PATENT, NO REDNESS,NO INFILTRATION PRESENT, INTACT AND PATENT. FLUIDS AND TOILETING OFFERED, ALL NEEDS ATTENDED AT THIS TIME,CALL LIGHT KEPT WITHIN REACH. WILL CONTINUE TO MONITOR ENDORSE TO NEXT SHIFT.
[2018-04-24 08:00] VITALS: BP 104/71
[2018-04-24] MEDS: FUROSEMIDE 40 MG/4 ML VIAL IV SCH ×2 (08:20→17:50)
[2018-04-24] MEDS: NICOTINE PATCH (21MG) 21 MG PATCH.TD24 TD SCH (08:21)
[2018-04-24] MEDS: predniSONE 20 MG TABLET PO SCH (08:22)
[2018-04-24] MEDS: ANASTROZOLE 1 MG TABLET PO SCH (08:22)
[2018-04-24] MEDS: MORPHINE SULFATE INJ 4 MG/ML DISP.SYRIN IV PRN ×2 (08:24→20:53)
--- NOTE | 2018-04-24 08:43 | NUR ---
PATIENT COMPLAINED OF 8/10 PAIN IN RIGHT EYE RADIATING TO THE RIGHT FACE AND NECK. MORPHINE ADMINISTERED PRESCRIBED.
[2018-04-24] MEDS: POLYETHYLENE GLYCOL 3350 17 GM POWD.PACK PO PRN (11:19)
--- NOTE | 2018-04-24 11:20 | NUR ---
paTIENT REPORTED ABDOMINAL DISCOMFORT RELATED TO CONSTIPATION. POLYETHYLENE GLYCOL ADMINISTERED PRESCRIBED.
[2018-04-24] MEDS: DIAZEPAM 2 MG TABLET PO PRN (15:43)
--- NOTE | 2018-04-24 15:51 | NUR ---
Patient complained of anxiety. Valium administered as ordered.
[2018-04-24 16:00] VITALS: BP 14/90
[2018-04-24] MEDS: HYDROCODONE/APAP 5/325MG 1 EACH TABLET PO PRN (17:50)
--- NOTE | 2018-04-24 17:51 | NUR ---
Patient complained of generalized pain. norco administered as ordered.
--- NOTE | 2018-04-24 19:35 | NUR ---
MS/RN NOTES RECEIVED PT. SITTING UP IN BED. PT. IS AWAKE, ALERT AND ORIENTED X4. BREATHING EVEN AND UNLABORED ON 5LPM O2 VIA NC. NO SOB, RESPIRATORY DISTRESS OR COMPLAINTS OF PAIN NOTED AT THIS TIME. PT. WITH RIGHT UPPER ARM MIDLINE PRESENT, PATENT AND INTACT. PER DAYSHIFT NURSE DISCHARGE ORDER WAS RECENTLY PLACED. WILL COMPLETE PT. EXITCARE AND FOLLOW UP WITH MD ABOUT DISCHARGE INSTRUCTIONS. BED LOCKED AND IN LOWEST POSITION, SIDE RAILS UP X2, CALL LIGHT WITHIN REACH, WILL CONTINUE TO MONITOR.
--- NOTE | 2018-04-24 19:50 | NUR ---
MS RN closing note Gave bedside SBAR report on the patient. Patient is A/Ox4, awake and responsive. Chest is rising equally/bilaterally. Denies pain discomfort at this time. RN established therapeutic relationship with the patient. All needs are met. Call light within reach. Educated to call for assistance using the call light. Verbalized understanding. portable oxygen concentrator at the bedside. Discharge order recently imputed. Indorsed to the overnight babysitter nurse to complete exitcare and provide the patient with discharge instructions. Oxygen and concentrator are delivered to patient's home. discussed with the senior case manager. Endorsed to the overnight babysitter nurse for nickolas.
[2018-04-24 20:00] VITALS: BP 112/69
--- NOTE | 2018-04-24 20:39 | NUR ---
MS/RN NOTES CLARIFIED PT. DISCHARGE ORDER WITH DR. CUADRA. [facility] OXYGEN WAS DELIVERED TO HER HOME AND IS PRESENT AT BEDSIDE. THERE IS A DISCHARGE ORDER BUT NO DISCHARGE NOTE, INSTRUCTIONS OR MED RECON IS DONE. PER DR. CUADRA HOLD PT. DISCHARGE FOR NOW "PT. STRUGGLES WITH HER DIAGNOSIS. DEPRESSED AND NEW TO OXYGEN". PT. WILL REMAIN HOSPITALIZED AT THIS TIME. WILL CONTINUE TO MONITOR.
[2018-04-24] MEDS: MIRTAZAPINE 15 MG TABLET PO SCH (22:46)
[2018-04-25] MEDS: IPRATROPIUM NEB FS 0.5 MG/2.5 ML AMPUL.NEB NEB SCH ×5 (00:12→15:45)
[2018-04-25] MEDS: ALBUTEROL FS 2.5 MG/0.5 ML VIAL.NEB NEB SCH ×5 (00:12→15:45)
[2018-04-25] MEDS: ZOLPIDEM TARTRATE 5 MG TABLET PO PRN (00:27)
--- NOTE | 2018-04-25 06:45 | NUR ---
MS/RN NOTES PT. IS LYING IN BED RESTING. BREATHING EVEN AND UNLABORED ON 5LPM O2 VIA NC. NO SOB, RESPIRATORY DISTRESS OR COMPLAINTS OF PAIN NOTED AT THIS TIME. PT. WITH RIGHT UPPER ARM MIDLINE PRESENT, PATENT AND INTACT. ALL PT. NEEDS MET. BED LOCKED AND IN LOWEST POSITION, SIDE RAILS UP X2, CALL LIGHT WITHIN REACH, WILL ENDORSE TO DAYSHIFT NURSE FOR CONTINUITY OF CARE.
[2018-04-25 08:00] VITALS: BP 112/79
[2018-04-25] MEDS: FUROSEMIDE 40 MG/4 ML VIAL IV SCH (09:16)
[2018-04-25] MEDS: ANASTROZOLE 1 MG TABLET PO SCH (09:16)
[2018-04-25] MEDS: NICOTINE PATCH (21MG) 21 MG PATCH.TD24 TD SCH (09:16)
[2018-04-25] MEDS: predniSONE 20 MG TABLET PO SCH (09:16)
[2018-04-25] MEDS: LEVOTHYROXINE SODIUM 75 MCG TABLET PO SCH (09:18)
--- NOTE | 2018-04-25 11:30 | NUR ---
had potassium replacement for low k level.
[2018-04-25] MEDS ORDERED: POTASSIUM CHLORIDE 20 MEQ TAB.PRT.SR PO ONE (12:30)
--- NOTE | 2018-04-25 12:30 | NUR ---
pacing and upset as wants to go home.reassured.alexandra middleton in and informed of pt. needs.will follow up.
[2018-04-25] MEDS: HYDROCODONE/APAP 5/325MG 1 EACH TABLET PO PRN (13:25)
--- NOTE | 2018-04-25 16:30 | NUR ---
haley valentine and lindy acoustic sensor operator here and rxs given for remeron and prednisone.pt. using foul language about health and having to wait for discharge.all papers signed and hep lock out.
--- NOTE | 2018-04-25 16:35 | NUR ---
taken via w/c to lobby with o2 tank for home accompanied by 2 administrative assistant data entry's.awaiting residential driver transport.
== END 2018-04-25 16:10 | disposition home health service (06) | DRG 952 ==
LOC: ER 19:33 → TELE 22:54 → ICU 04-08 02:08 → TELE 04-19 18:55 → MED 04-20 10:24
PROVIDERS: ADMIT Nurse Practitioner Acute Care; ATTEND Nurse Practitioner Acute Care
PROC: 5A09557 Assistance with Respiratory Ventilation, Greater than 96 Consecutive Hours, Continuous Positive Airway Pressure (ICD-10-PCS; principal; 2018-04-08)
PROC: 05H533Z Insertion of Infusion Device into Right Subclavian Vein, Percutaneous Approach (ICD-10-PCS; 2018-04-09)
PROC: B546ZZA Ultrasonography of Right Subclavian Vein, Guidance (ICD-10-PCS; 2018-04-09)
PROC: 0W993ZZ Drainage of Right Pleural Cavity, Percutaneous Approach (ICD-10-PCS; 2018-04-10)
PROC: 0W9B3ZZ Drainage of Left Pleural Cavity, Percutaneous Approach (ICD-10-PCS; 2018-04-11)
PROC: 0JB Subcutaneous Tissue and Fascia, Excision (ICD-10-PCS; 2018-04-12)
PROC: 07D23ZX Extraction of Left Neck Lymphatic, Percutaneous Approach, Diagnostic (ICD-10-PCS; 2018-04-12)
DX: J96.01 Acute respiratory failure with hypoxia (principal); J69.0 Pneumonitis due to inhalation of food and vomit; J91.0 Malignant pleural effusion; C78.01 Secondary malignant neoplasm of right lung; C77.0 Secondary and unspecified malignant neoplasm of lymph nodes of head, face and neck; E44.0 Moderate protein-calorie malnutrition; M84.48XA Pathological fracture, other site, initial encounter for fracture; J44.0 Chronic obstructive pulmonary disease with (acute) lower respiratory infection; C78.02 Secondary malignant neoplasm of left lung; J96.02 Acute respiratory failure with hypercapnia; C79.89 Secondary malignant neoplasm of other specified sites; E88.09 Other disorders of plasma-protein metabolism, not elsewhere classified; E83.42 Hypomagnesemia; Z85.3 Personal history of malignant neoplasm of breast; Z90.12 Acquired absence of left breast and nipple; E03.9 Hypothyroidism, unspecified; F17.210 Nicotine dependence, cigarettes, uncomplicated; R74.0 Nonspecific elevation of levels of transaminase and lactic acid dehydrogenase [LDH]; R59.0 Localized enlarged lymph nodes; D63.8 Anemia in other chronic diseases classified elsewhere; Z59.0 Homelessness; H54.61 Unqualified visual loss, right eye, normal vision left eye; J44.1 Chronic obstructive pulmonary disease with (acute) exacerbation; J98.11 Atelectasis; Z91.19 Patient's noncompliance with other medical treatment and regimen; Z68.28 Body mass index [BMI] 28.0-28.9, adult; F41.1 Generalized anxiety disorder; F32.9 Major depressive disorder, single episode, unspecified; F43.25 Adjustment disorder with mixed disturbance of emotions and conduct; E87.6 Hypokalemia; E87.2 Acidosis
CPT/HCPCS: 21550; 36415; 36569; 36600; 70450-TC; 70470-TC; 70481-TC; 70490-TC; 71045-TC; 76942-TC; 80048-TC; 80053-TC; 80076-TC; 81000-TC; 82803-TC; 82962-TC; 82977-TC; 83540-TC; 83605-TC; 83615-TC; 83690-TC; 83735-TC; 83880; 84100-TC; 84443-TC; 84484-TC; 85025-TC; 85610-TC; 85652-TC; 85730-TC; 86300; 87040-TC; 87070-TC; 87081-TC; 87086-TC; 88305-TC; 88312-TC; 89051-TC; 93307-TC; 94762-TC; 94799-TC; A4606; J0360; J0456; J0696; J1650; J1940; J2270; J2405; J2543; J3475; J3490; J7030; J7040; J7050; J7060; Q9967; Z7610

== ENCOUNTER 2019-03-08 06:19 | Emergency (ER) | payer MEDICAID, OTHER ==
[~2019-03-08] VITALS: Ht 167.6 cm; Wt 33.6 kg
[~2019-03-08 06:19] MED LIST: LEVO75TA7 PO
--- NOTE | 2019-03-08 06:25 | NUR ---
PT BIBRA FROM HOME C/O L ARM PAIN. DESCRIBED [place], PAIN WOKE UP PT FROM SLEEP. DENIES RECENT TRAUMA. SKIN INTACT. PT CURRENTLY NOT IN PAIN. PT AAOX4. RESPIRATIONS EVEN AND UNLABORED. VITAL SIGNS STABLE. NO ACUTE DISTRESS NOTED AT THIS TIME.
--- NOTE | 2019-03-08 06:31 | NUR ---
MD AT BEDSIDE FOR EVALUATION
--- NOTE | 2019-03-08 06:57 | NUR ---
BROUGHT BY RADIOLOGY FOR CT
--- NOTE | 2019-03-08 07:09 | NUR ---
PT RETURNED FROM CT
--- NOTE | 2019-03-08 07:30 | NUR ---
report rec'd from federico casey for nickolas.
[2019-03-08 08:27] LABS: EOSINOPHILS % (AUTO) 0.3 % (0.0-6.0); HEMOGLOBIN 8.6 g/dL (11.5-14.8); LYMPHOCYTES # (AUTO) 1.8 /CMM (0.8-4.8); MONOCYTES # (AUTO) 0.5 /CMM (0.1-1.30); WHITE BLOOD COUNT (AUTO) 8.4 K/uL (4.3-11.0)
[2019-03-08 08:35] LABS: BASOPHILS % (AUTO) 0.5 % (0.0-2.0); HEMATOCRIT 26 % (33-45); LYMPHOCYTES % (AUTO) 21.2 % (20.0-44.0); MEAN CORPUSCULAR HGB CONC 33 g/dl (31.0-36.0); MEAN CORPUSCULAR VOLUME 91 fL (82-100); MONOCYTES % (AUTO) 5.6 % (2.0-12.0); NEUTROPHILS # (AUTO) 6.1 /CMM (1.8-8.9); NEUTROPHILS % (AUTO) 72.4 % (43.0-81.0); PLATELET COUNT (AUTO) 182 /CMM (150-450)
[2019-03-08 08:39] LABS: CALCIUM, SERUM 9.1 mg/dL (8.5-10.1); POTASSIUM 4.6 mmol/L (3.5-5.1)
[2019-03-08 09:37] LABS: LYMPHOCYTES % (MANUAL) 15 % (16-48); MONOCYTES % (MANUAL) 7 % (0-11.0); NEUTROPHILS % (MANUAL) 78 (42-76)
[2019-03-08] MEDS ORDERED: PANT40TA4 PO (09:38)
[2019-03-08] MEDS ORDERED: GABA-534 PO (09:38)
[2019-03-08] MEDS ORDERED: VENL150C58 PO (09:38)
[2019-03-08] MEDS ORDERED: BUPR1FIL3 SL (09:38)
[2019-03-08] MEDS ORDERED: QUET200T PO (09:38)
[2019-03-08 09:41] VITALS: BP 107/72
--- NOTE | 2019-03-08 10:49 | NUR ---
Patient discharged to home in stable condition. Written and verbal after care instructions given. Patient verbalizes understanding of instruction. IV removed. Catheter intact and site benign. Pressure and 4x4 applied to site. No bleeding noted.
== END 2019-03-08 11:46 | disposition home or self-care (01) ==
LOC: ER 06:27
DX: M79.602 Pain in left arm (principal); D64.9 Anemia, unspecified; F32.9 Major depressive disorder, single episode, unspecified; F17.200 Nicotine dependence, unspecified, uncomplicated; Z85.3 Personal history of malignant neoplasm of breast; Z90.12 Acquired absence of left breast and nipple; Z79.899 Other long term (current) drug therapy
CPT/HCPCS: 36415; 70450-TC; 71045-TC; 72125-TC; 80048-TC; 85025-TC; 85730-TC